=== PATIENT | female | born 1950 | race Caucasian/White ===

== ENCOUNTER 2021-02-01 18:15 | Inpatient (IN) | payer OTHER ==
--- OUTSIDE RECORDS SUMMARY | 2021-02-01 18:24 | XMS REPORT | Continuity of Care Document ---
:1950 Author Organization [facility] t Address [address] [place] [address] Dr. [place] [place] [address] Care Team Providers Name Role Phone Asked, Pcp Primary Care Physician Unavailable Jelani Malik DO Attending Clinician Rupert CORTEZ, Scott Attending Clinician Lab, Fam Pob I Attending Clinician Unavailable Problems This patient has no known problems. Allergies, Adverse Reactions, Alerts Allergy Allergy Status Severity Reaction(s) Onset Inactive Treating Comm ents Source Name Type Date Date Clinician Meperidi Propensi Active Rash 2016-0 [place] to 1-16 Methodi adverse 00:00: st reaction 00 s to drug Nsaids Propensi Active Nausea And 2017-0 [place] (Non-[place]ant[place] ty to Vomiting -16 Method i roidal adverse 00:00: st Anti-Inf reaction 00 lammator s to y Drug) drug Family History Family Member Diagnosis Comments Start Date Stop Date Source Natural father Heart disease [place] [facility] Natural mother Cancer [facility] thodi Social History Social Habit Start Date Stop Date Quantity Comments Source History of tobacco Cigarette Smoker [place] use [facility] Alcohol intake 2019-08-21 2019-08-21 Current drinker [place] on 00:00:00 00:00:00 of alcohol [facility] (finding) Cigarettes smoked 2019-08-21 2019-08-21 [place] current (pack per 00:00:00 00:00:[address] day) - Reported Cigarette 2019-08-21 2019-08-21 [place] pack-years 00:00:00 00:00:00 [facility] Sex [birth year] [place] 00:00:00 00:00:00 [facility] Smoking Status Start Date Stop Date Source Current every day smoker 2019-08-21 00:00:00 Norma Kinsey Medications Ordered Filled Start Stop Current Ordering Indication Dosage Frequency Signature Comments Components Source Medication Medication Date Date Medication? Clinician (SIG) Name Name albuterol 2020-0 Yes 2{puff} Q6H Inhale 2 [place] (PROAIR 1-23 puffs Methodi HFA) 90 14:05: every 6 st mcg/actuati 07 (six) on inhaler hours as needed for wheezing. hydroxychlo 2020-0 Yes Q.5D Take by Norma braun roquine 1-23 mouth 2 Methodi (PLAQUENIL) 14:05: (two) st 200 mg 07 times a tablet day. sulfaSALAzi 2020-0 Yes 3 pills Norma braun ne 1-21 bid [facility]i (AZULFIDINE 00:00: st ) 500 mg 00 tablet Procedures This patient has no known procedures. Plan of Care Planned Activity Planned Date Details Comments Source Future Scheduled 2021-02-27 INFLUENZA VACCINE [place] [facility] Test 00:00:00 [code = INFLUENZA VACCINE] Future Scheduled 2001 BREAST CANCER [facility] thodist Test 00:00:00 SCREENING [code = BREAST CANCER SCREENING] Future Scheduled 2001 COLONOSCOPY SCREENING Ho jelena [facility] Test 00:00:00 [code = COLONOSCOPY SCREENING] Future Scheduled 2001 SHINGLES VACCINES [place] [facility] Test 00:00:00 (#1) [code = SHINGLES VACCINES (#1)] Future Scheduled 1969 Hepatitis C screening Ho jelena [facility] Test 00:00:00 (procedure) [code = 299271456] Future Scheduled 1963 COVID-19 VACCINE (1) Norma braun [facility] Test 00:00:00 [code = COVID-19 VACCINE (1)] Encounters Start End Encounter Admission Attending Care Care Encounter Source Date/Time Date/Time Type Type Clinicians Facility Department ID 2020-10-04 2020-10-04 Patient ANTOINE Malik [id number] 00:00:00 00:00:00 Outreach [facility] [id number] [facility] [id number] PAVILLION [id number] 2020-09-01 2020-09-[address] [facility] [id number] 00:00:00 00:00:00 [facility] [id number] [place] [id number] Professio [phone] [place] [address] [address] 2020-06-09 2020-06-09 [facility] [id number] 00:00:00 00:00:00 Steve Mosquera [id number] Edward [place] [id number] Professio [phone] [place] [address] [address] 2020-04-09 2020-04-09 Kaitlyn Emery [facility] [id number] 00:00:00 00:00:00 Steve Mosquera [id number] Edward [place] [id number] Professio [phone] nal [facility] Office [address] One 2019-03-28 2019-03-28 Machinery [facility], [facility] [id number] 08:01:29 08:12:59 Visit Idris [facility] [id number] [place] [id number] Professio [phone] nal [facility] Office [address] [facility] 2019-03-27 2019-03-27 [facility] [id number] 10:16:16 11:02:33 Visit [facility] [id number] Edward [place] [id number] Professio [phone] [place] [address] [address] Results This patient has no known results.
[2021-02-01] MEDS ORDERED: IPRATROPIUM BROM 0.5MG/2.5ML ONE ×2 (20:31→23:26)
[2021-02-01] MEDS ORDERED: METHYLPREDNISOLONE 125 MG INJ ONE (20:31)
[2021-02-01 20:34] LABS: Absolute Lymphocytes (CBC) 0.6 K/uL (0.7-4.9); Basophils % 0.3 % (0-1.3); Hematocrit 44.7 % (36.0-45.0); Lymphocytes % 13.4 % (15.3-44.8); MPV 9.1 fL (7.6-11.3); RBC Red Blood Cell Count 4.86 M/uL (3.86-4.86)
[2021-02-01 20:53] LABS: ALT/SGPT 26 U/L (12-78); Albumin 3.7 g/dL (3.4-5.0); Alkaline Phosphatase 60 U/L (45-117); BUN Blood Urea Nitrogen 12 mg/dL (7-18); Bicarbonate 25 mmol/L (21-32); Bilirubin Direct 0.2 mg/dL (0-0.2); Glucose Level 110 mg/dL (74-106); NT PRO-BNP 151 pg/mL (<125); Protein, Total 7.1 g/dL (6.4-8.2); Sodium Level 136 mmol/L (136-145); Troponin (Emerg Dept Use Only) < 0.02 ng/mL (0.0-0.045)
[2021-02-01 21:14] LABS: AST/SGOT 23 U/L (15-37); Magnesium 2.1 mg/dL (1.8-2.4)
[2021-02-01 21:15] LABS: Protime INR 0.92
--- NOTE | 2021-02-01 23:10 | ER ---
Nurse's Notes [facility] Name: Baylee Ohara Age: 71 yrs Sex: Female : 1950 Arrival Date: 02/01/2021 Time: 18:17 Bed 7 Private MD: Steve Emery Diagnosis: COPD/ Chronic obstructive pulmonary disease with (acute) exacerbation Presentation: 02/01 18:20 Initial Sepsis Screen: Does the patient meet any 2 criteria? RR > 20 per min. No. sv Patient's initial sepsis screen is negative. Does the patient have a suspected source of infection? No. Patient's initial sepsis screen is negative. 18:21 Chief complaint: Patient states: SOB x 2 days ago after trying a vape at a vape store, sv her PCP told her to start vaping to wean off of her cigarette's. Report cough and congestion as well. Coronavirus screen: Client denies travel out of the [place] in the last 14 days. At this time, the client does not indicate any symptoms associated with coronavirus-19. Ebola Screen: No symptoms or risks identified at this time. Risk Assessment: Do you want to hurt yourself or someone else? Patient reports no desire to harm self or others. Onset of symptoms was January 30, 2021. 18:21 Method Of Arrival: Wheelchair sv 18:21 Acuity: DUSTIN 3 sv Triage Assessment: 18:20 General: Appears in no apparent distress. uncomfortable, Behavior is calm, cooperative, sv appropriate for age. Pain: Denies pain. Neuro: Level of Consciousness is awake, alert, obeys commands, Oriented to person, place, time, situation. Respiratory: Reports shortness of breath Respiratory effort is even, unlabored, Respiratory pattern is tachypnea. Historical: - Allergies: 18:22 NSAIDS; sv 18:22 Demerol; sv - PMHx: 18:22 Chronic obstructive lung disease; RA; sv - Immunization history:: Client reports receiving the 2nd dose of the Covid vaccine, Client reports receiving the 1st dose of the Covid vaccine. - Social history:: Smoking status: Patient reports the use of cigarette tobacco products, smokes one pack cigarettes per day. Screenin:30 Abuse screen: Denies threats or abuse. Nutritional screening: No deficits noted. ea Tuberculosis screening: No symptoms or risk factors identified. Fall Risk None identified. Assessment: 18:28 Reassessment: Received VO from Dr Conklin for CXR. sv 20:20 General: Appears appears SOB at rest. Behavior is calm, cooperative, appropriate for ad5 age. Neuro: No deficits noted. Level of Consciousness is awake, alert, obeys commands, Oriented to person, place, time, situation, Appropriate for age. Cardiovascular: Reports fatigue, shortness of breath, Heart tones present Capillary refill < 3 seconds Patient's skin is warm and dry. Pulses are all present. Rhythm is regular. Respiratory: Reports shortness of breath cough that is congestion Airway is patent Respiratory effort is even, labored, Respiratory pattern is regular, symmetrical, audible wheezes noted. GI: No deficits noted. No signs and/or symptoms were reported involving the gastrointestinal system. : No deficits noted. No signs and/or symptoms were reported regarding the genitourinary system. Derm: Skin is pink, warm \T\ dry. Musculoskeletal: Reports pt reports generalized weakness. 21:32 Reassessment: Patient appears in no apparent distress at this time. Patient and/or ad5 family updated on plan of care and expected duration. Pain level reassessed. Patient is alert, oriented x 3, equal unlabored respirations, skin warm/dry/pink. Patient states symptoms have improved. 22:51 Reassessment: Patient appears in no apparent distress at this time. No changes from ad5 previously documented assessment. Patient and/or family updated on plan of care and expected duration. Pain level reassessed. 23:50 Reassessment: No changes from previously documented assessment. Patient and/or family ad5 updated on plan of care and expected duration. Pain level reassessed. 02/02 01:30 Reassessment: Patient appears in no apparent distress at this time. Patient and/or ad5 family updated on plan of care and expected duration. Pain level reassessed. Patient is alert, oriented x 3, equal unlabored respirations, skin warm/dry/pink. 02:29 Reassessment: Patient and/or family updated on plan of care and expected duration. Pain ad5 level reassessed. Patient is alert, oriented x 3, equal unlabored respirations, skin warm/dry/pink. Vital Signs: 02/01 18:20 BP 145 / 66; Pulse 85; Resp 24; Temp 98; Pulse Ox 92% on R/A; Weight 101.6 kg; Height 5 sv ft. 2 in. (157.48 cm); 20:06 BP 124 / 62; Pulse 77; Resp 24 S; Pulse Ox 99% on NC; ad5 21:32 BP 143 / 66; Pulse 77; Resp 22 S; Pulse Ox 100% on Nebulizer Mask; ad5 22:51 BP 105 / 77; Pulse 82; Resp 20 S; Pulse Ox 100% ; ad5 23:49 BP 121 / 61; Pulse 71; Resp 23 S; Pulse Ox 98% on Nebulizer Mask; ad5 18:20 Body Mass Index 40.97 (101.60 kg, 157.48 cm) sv 18:20 Pt placed on O2 \T\ 2L per NC. sv ED Course: 18:17 Patient arrived in ED. ds1 18:17 Steve Emery MD is Private Physician. ds1 18:22 Triage completed. sv 18:22 Arm band placed on. sv 19:38 Jordan English MD is Attending Physician. 7 19:42 Brendon Hilliard is Primary Nurse. ad5 20:00 Patient has correct armband on for positive identification. Bed in low position. Call ea light in reach. Side rails up X2. 23:09 Mitch Castro MD is Hospitalizing Provider. [facility] 23:48 Arterial Blood Gas Sent. ad5 23:53 Inserted saline lock: 22 gauge in right hand, using aseptic technique. ea 02/02 02:32 No provider procedures requiring assistance completed. Patient admitted, IV remains in ad5 place. Administered Medications: 02/01 20:18 Drug: Albuterol - atroVENT (ipratropium) (3:1) (2.5 mg - 0.5 mg) 3 ml Route: Nebulizer; ad5 21:22 Follow up: Response: No adverse reaction ad5 20:18 Drug: SOLU-Medrol (methylPrednisoLONE) 125 mg {Note: order changed to IM administration ad5 per , pt hard stick.} Route: IVP; Site: Other; 21:22 Follow up: Response: No adverse reaction ad5 23:30 Drug: Albuterol 2.5 mg Route: Inhalation; ad5 02/02 00:50 Follow up: Response: No adverse reaction ad5 02/01 23:35 Drug: Magnesium Sulfate 1 grams Route: IVPB; Infused Over: 1 hrs; Site: right hand; ea 02/02 00:50 Follow up: IV Status: Completed infusion ad5 02/01 23:49 Drug: AtroVENT (ipratropium) Aerosol 0.5 mg Route: Inhalation; ea 02/02 02:29 Follow up: Response: No adverse reaction ad5 Outcome: 02/01 23:09 Decision to Hospitalize by Provider. 7 02/02 02:32 Admitted to Med/surg accompanied by nurse, via stretcher, with oxygen, Report called to maria guadalupe Curtis RN Condition: stable Instructed on the need for admit, Demonstrated understanding of instructions. 02:44 Patient left the ED. ea Signatures: Heather Kelly RN RN Juana Roberto ds1 Antonia Gould RN RN ea Holmes, Maurice, MD MD [facility] Brendon Hilliard [facility] Corrections: (The following items were deleted from the chart) 02/01 18:23 18:20 Pulse 85bpm; Resp 24bpm; Pulse Ox 92% RA; sv sv 18:28 18:20 BP 145 / 66; Pulse 85bpm; Resp 24bpm; Pulse Ox 92% RA; Temp 98F; 101.6 kg; Height sv 5 ft. 2 in.; BMI: 40.9; sv 20:59 20:05 To radiology for Chest Single View+RAD.RAD.BRZ. ad5 EDMS 21:06 20:20 Respiratory: Reports shortness of breath cough that is congestion Airway is ad5 patent Respiratory effort is even, labored, Respiratory pattern is regular, symmetrical, ad5 23:42 23:42 Magnesium Sulfate 1 grams IVPB in right forearm over 1 hrs ea ea
--- NOTE | 2021-02-01 23:11 | EDPHYS ---
Physician Documentation [facility] Name: Baylee Ohara Age: 71 yrs Sex: Female : 1950 Arrival Date: 02/01/2021 Time: 18:17 Bed 7 Private MD: Steve Emery ED Physician Jordan English HPI: 02/01 20:29 This 71 yrs old Female presents to ER via Wheelchair with complaints of mh7 Shortness Of Breath. 20:29 The patient has shortness of breath at rest, with light activity. Onset: The mh7 symptoms/episode began/occurred 3 day(s) ago. Duration: The symptoms are continuous, and are steadily getting worse. The patient's shortness of breath is aggravated by coughing, exertion, light activity, is alleviated by nothing. Associated signs and symptoms: Pertinent positives: productive cough, Pertinent negatives: chest pain, non-productive cough, diaphoresis, dizziness, fever, hemoptysis, loss of consciousness, nausea, numbness in extremities, visual changes, vomiting. Severity of symptoms: At their worst the symptoms were moderate last night, in the emergency department the symptoms are unchanged. Historical: - Allergies: 18:22 NSAIDS; sv 18:22 Demerol; sv - PMHx: 18:22 Chronic obstructive lung disease; RA; sv - Immunization history:: Client reports receiving the 2nd dose of the Covid vaccine, Client reports receiving the 1st dose of the Covid vaccine. - Social history:: Smoking status: Patient reports the use of cigarette tobacco products, smokes one pack cigarettes per day. ROS: 20:29 Constitutional: Negative for fever, chills, and weight loss, Eyes: Negative for injury, mh7 pain, redness, and discharge, ENT: Negative for injury, pain, and discharge, Neck: Negative for injury, pain, and swelling, Cardiovascular: Negative for chest pain, palpitations, and edema, Abdomen/GI: Negative for abdominal pain, nausea, vomiting, diarrhea, and constipation, Back: Negative for injury and pain, : Negative for injury, bleeding, discharge, and swelling, MS/Extremity: Negative for injury and deformity, Skin: Negative for injury, rash, and discoloration, Neuro: Negative for headache, weakness, numbness, tingling, and seizure, Psych: Negative for depression, anxiety, suicide ideation, homicidal ideation, and hallucinations, Allergy/Immunology: Negative for hives, rash, and allergies, Endocrine: Negative for neck swelling, polydipsia, polyuria, polyphagia, and marked weight changes, Hematologic/Lymphatic: Negative for swollen nodes, abnormal bleeding, and unusual bruising. Exam: 20:29 Constitutional: This is a well developed, well nourished patient who is awake, alert, mh7 and in no acute distress. Head/Face: Normocephalic, atraumatic. Eyes: Pupils equal round and reactive to light, extra-ocular motions intact. Lids and lashes normal. Conjunctiva and sclera are non-icteric and not injected. Cornea within normal limits. Periorbital areas with no swelling, redness, or edema. Neck: Trachea midline, no thyromegaly or masses palpated, and no cervical lymphadenopathy. Supple, full range of motion without nuchal rigidity, or vertebral point tenderness. No Meningismus. Chest/axilla: Normal chest wall appearance and motion. Nontender with no deformity. No lesions are appreciated. Cardiovascular: Regular rate and rhythm with a normal S1 and S2. No gallops, murmurs, or rubs. Normal PMI, no JVD. No pulse deficits. 20:29 Abdomen/GI: Soft, non-tender, with normal bowel sounds. No distension or tympany. No guarding or rebound. No evidence of tenderness throughout. Back: No spinal tenderness. No costovertebral tenderness. Full range of motion. Skin: Warm, dry with normal turgor. Normal color with no rashes, no lesions, and no evidence of cellulitis. MS/ Extremity: Pulses equal, no cyanosis. Neurovascular intact. Full, normal range of motion. Neuro: Awake and alert, GCS 15, oriented to person, place, time, and situation. Cranial nerves II-XII grossly intact. Motor strength 5/5 in all extremities. Sensory grossly intact. Cerebellar exam normal. Normal gait. Psych: Awake, alert, with orientation to person, place and time. Behavior, mood, and affect are within normal limits. 20:29 Respiratory: mild respiratory distress is noted, Respirations: prolonged exhalation, that is moderate, tachypnea, that is mild, Breath sounds: rhonchi, that are mild, are scattered, wheezing: expiratory that is moderate, is heard diffusely, Respiratory rate: 24 Vital Signs: 18:20 BP 145 / 66; Pulse 85; Resp 24; Temp 98; Pulse Ox 92% on R/A; Weight 101.6 kg; Height 5 sv ft. 2 in. (157.48 cm); 20:06 BP 124 / 62; Pulse 77; Resp 24 S; Pulse Ox 99% on NC; ad5 21:32 BP 143 / 66; Pulse 77; Resp 22 S; Pulse Ox 100% on Nebulizer Mask; ad5 22:51 BP 105 / 77; Pulse 82; Resp 20 S; Pulse Ox 100% ; ad5 23:49 BP 121 / 61; Pulse 71; Resp 23 S; Pulse Ox 98% on Nebulizer Mask; ad5 18:20 Body Mass Index 40.97 (101.60 kg, 157.48 cm) sv 18:20 Pt placed on O2 \T\ 2L per NC. sv MDM: 23:07 Differential diagnosis: Anemia Anxiety Reaction asthma, Bronchitis CHF exacerbation, 7 Chronic Obstructive Pulmonary Disease Myocardial Infarction pneumonia, Pneumothorax Psychogenic pulmonary edema, reactive airway disease. Data reviewed: vital signs, nurses notes, lab test result(s), cardiac enzymes, CBC, electrolytes, EKG, radiologic studies, CT scan, plain films, Done earlier today as an outpatient. Data interpreted: Pulse oximetry: on 3L(s) per nasal canula, is 100 %. Interpretation: acceptable. Counseling: I had a detailed discussion with the patient and/or guardian regarding: the historical points, exam findings, and any diagnostic results supporting the discharge/admit diagnosis, lab results, radiology results, the need for further work-up and treatment in the hospital. Response to treatment: the patient's symptoms have mildly improved after treatment. 23:09 Patient medically screened. [facility] 02/01 19:47 Order name: Basic Metabolic Panel; Complete Time: 21:40 [facility] 02/01 19:47 Order name: CBC with Diff; Complete Time: 21:40 [facility] 02/01 19:47 Order name: LFT's; Complete Time: 21:40 [facility] 02/01 19:47 Order name: Magnesium; Complete Time: 21:40 [facility] 02/01 19:47 Order name: NT PRO-BNP; Complete Time: 21:40 [facility] 02/01 19:47 Order name: PT-INR; Complete Time: 21:40 [facility] 02/01 19:47 Order name: Troponin (emerg Dept Use Only); Complete Time: 21:40 [facility] 02/01 22:57 Order name: Blood Culture Adult (2) la1 02/01 22:57 Order name: Procalcitonin la1 02/01 22:58 Order name: Arterial Blood Gas [facility] 02/01 22:59 Order name: ABG Arterial Blood Gas [facility] 02/02 01:48 Order name: SARS-COV-2 RT PCR [facility] 02/01 19:47 Order name: EKG; Complete Time: 19:49 [facility] 02/01 19:47 Order name: Cardiac monitoring; Complete Time: 20:05 [facility] 02/01 19:47 Order name: EKG - Nurse/Tech; Complete Time: 20:05 [facility] 02/01 19:47 Order name: Labs collected and sent; Complete Time: 20:06 [facility] 02/01 19:47 Order name: O2 Per Protocol; Complete Time: 21:22 [facility] 02/01 19:47 Order name: O2 Sat Monitoring; Complete Time: 21:22 [facility] 02/01 20:36 Order name: Labs - recollect needed: blue and green top; Complete Time: 21:34 mw2 Administered Medications: 20:18 Drug: Albuterol - atroVENT (ipratropium) (3:1) (2.5 mg - 0.5 mg) 3 ml Route: Nebulizer; ad5 21:22 Follow up: Response: No adverse reaction ad5 20:18 Drug: SOLU-Medrol (methylPrednisoLONE) 125 mg {Note: order changed to IM administration ad5 per MD, pt hard stick.} Route: IVP; Site: Other; 21:22 Follow up: Response: No adverse reaction ad5 23:30 Drug: Albuterol 2.5 mg Route: Inhalation; ad5 02/02 00:50 Follow up: Response: No adverse reaction ad5 02/01 23:35 Drug: Magnesium Sulfate 1 grams Route: IVPB; Infused Over: 1 hrs; Site: right hand; ea 02/02 00:50 Follow up: IV Status: Completed infusion ad5 02/01 23:49 Drug: AtroVENT (ipratropium) Aerosol 0.5 mg Route: Inhalation; ea 02/02 02:29 Follow up: Response: No adverse reaction ad5 Disposition Summary: 02/01/21 23:09 Hospitalization Ordered Hospitalization Status: Inpatient Admission [facility] Provider: Mitch Castro [facility] Location: Telemetry/MedSurg (Inpatient) [facility] Condition: Stable [facility] Problem: an acute exacerbation [facility] Symptoms: have improved [facility] Bed/Room Type: Standard [facility] Room Assignment: 403(02/02/21 02:26) bb Diagnosis - COPD/ Chronic obstructive pulmonary disease with (acute) exacerbation [facility] Forms: - Medication Reconciliation Form [facility] - SBAR form [facility] Signatures: Dispatcher [employer] EDMS Heather Kelly, RN RN Jyothi Antony RN RN bb Raman Huizar, TRAVEL COUNSELOR-C TRAVEL COUNSELOR-Cla1 Antonia Gould RN RN Tomasa Hernandez [facility] Jordan English MD MD [facility] Brendon Hilliard Corrections: (The following items were deleted from the chart) 02/01 19:39 18:29 Chest Pa And Lat (2 Views)+RAD.RAD.BRZ ordered. [facility] EDOR 20:59 19:49 Chest Single View+RAD.RAD.BRZ ordered. EDOR EDMS 20:59 20:06 Chest Single View+RAD.RAD.BRZ reviewed. [address] 02/02 02:26 02/01 23:09 [facility] bb
[2021-02-01] MEDS ORDERED: ALBUTEROL 2.5 MG/3 ML NEB SOL ONE (23:26)
--- NOTE | 2021-02-01 23:31 | P.HP ---
Certification for Inpatient Patient admitted to: Observation With expected LOS: <2 Midnights Patient will require the following post-hospital care: None Practitioner: I am a practitioner with admitting privileges, knowledge of patient current condition, hospital course, and medical plan of care. Services: Services provided to patient in accordance with Admission requirements found in Title 42 Section 412.3 of the Code of Federal Regulations Patient History Date of Service: 02/01/21 Primary Care Provider: Dr. Goldsmith Reason for admission: COPD exacerbation History of Present Illness: 71-year-old female with history of COPD, rheumatoid arthritis presents emergency department for shortness of breath. Patient reports increasing shortness of breath, chills, increased sputum production over the course of the last 3 days. Labs in the emergency department unremarkable, patient had outpatient chest x-ray today which was negative for any acute findings, CT chest demonstrates small 5 mm noncalcified nodule in the right upper lobe with recommendation for continue with annual low-dose CT imaging recommended. Patie nt still with significant expiratory wheezing on exam after breathing treatments, steroids, ED provider wishes to admit under observation for further evaluation and management - Past Medical/Surgical History -: COPD -: Rheumatoid arthritis -: Back fusion -: Left ankle surgery -: Hysterectomy -: Cholecystectomy Psychosocial/ Personal History: Retired, lives with - Family History Mother -: Cancer Father -: Heart disease - Social History Smoking Status: Current every day smoker Counseled patient to stop smoking for: less than 10 minutes Smoking therapy provided: Yes Alcohol use: No CD- Drugs: No Caffeine use: Yes Place of Residence: Home Review of Systems General: Chills Respiratory: Cough, Shortness of Breath, Sputum, Wheezing, As per HPI Physical Examination - Physical Exam General: Alert, In no apparent distress, Oriented x3 HEENT: Atraumatic, PERRLA, Mucous membr. moist/pink Neck: Supple, 2+ carotid pulse no bruit, No LAD Respiratory: Normal air movement, Expiratory wheezes Cardiovascular: Regular rate/rhythm, Normal S1 S2 Gastrointestinal: Normal bowel sounds, No tenderness Musculoskeletal: No tenderness Integumentary: No rashes Neurological: Normal speech, Normal strength at 5/5 x4 extr, Normal tone, Normal affect - Studies Laboratory Data (last 24 hrs) 02/01/21 20:52: PT 10.6, INR 0.92 02/01/21 20:52: Sodium 136, Potassium 4.0, BUN 12, Creatinine 0.71, Glucose 110 H, Magnesium 2.1, Total Bilirubin 1.0, AST 23, ALT 26, Alkaline Phosphatase 60 02/01/21 20:05: WBC 4.40, Hgb 15.0, Hct 44.7, Plt Count 158 Assessment and Plan - Plan Assessment Dyspnea secondary to COPD with exacerbation Rheumatoid arthritis Incidental 5 mm lung nodule noted on CT Tobacco abuse Plan Dyspnea secondary to COPD with exacerbation: Continue with scheduled nebs, IV steroids, supplemental oxygen as needed. Anticipate clinical improvement next 24-48 hr. Pro calcitonin/blood cultures pending, no signs of infection at this time. DVT prophylaxis Lovenox 40 mg subcutaneous once daily. Rheumatoid arthritis: Continue medications. Incidental 5 mm lung nodule noted on CT: This was discussed with patient, recommendation is for annual low-dose CT. Tobacco abuse: Provide with Nicoderm patch, recommend tobacco cessation. Discharge Plan: Home Plan to discharge in: 24 Hours - Advance Directives Does patient have a Living Will: Yes Does patient have a Durable POA for Healthcare: Yes - Code Status/Comfort Care Code Status Assessed: Yes (Full code) Critical Care: No Time Spent Managing Pts Care (In Minutes): 55
[2021-02-01] MEDS ORDERED: Magnesium Sulfate 2gm IVPB 2 G/50 ML BAG IV ONE (23:35)
[2021-02-01 23:53] LABS: Arterial Blood Carboxyhemoglob 1.5 % (0-1.5); Blood Gas Oxyhemoglobin 87.7 % (94-97); Blood O2 Saturation 89.9 % (92-98.5)
[2021-02-02 02:59] VITALS: BMI 35.5
[2021-02-02] MEDS ORDERED: ACETAMINOPHEN 500 MG TAB PO PRN (03:09)
[2021-02-02] MEDS ORDERED: NICOTINE 14 MG/PAT TD PRN (03:09)
[2021-02-02] MEDS: METHYLPREDNISOLONE 125 MG INJ IV SCH ×3 (03:30→17:26)
[2021-02-02] MEDS: IPRATROPIUM BROM 0.5MG/2.5ML NEB SCH ×4 (03:40→19:25)
[2021-02-02] MEDS: ALBUTEROL 2.5 MG/3 ML NEB SOL NEB SCH ×4 (03:40→19:25)
[2021-02-02] MEDS ORDERED: ALBUTEROL INHALER 60 PUFF/8 GM IH PRN (05:04)
[2021-02-02 05:58] LABS: Absolute Lymphocytes (CBC) 0.2 K/uL (0.7-4.9); Basophils % 0.2 % (0-1.3); Hematocrit 41.5 % (36.0-45.0); Lymphocytes % 8.3 % (15.3-44.8); MPV 9.2 fL (7.6-11.3); RBC Red Blood Cell Count 4.49 M/uL (3.86-4.86)
[2021-02-02 06:04] LABS: ALT/SGPT 25 U/L (12-78); AST/SGOT 19 U/L (15-37); Albumin 3.4 g/dL (3.4-5.0); Alkaline Phosphatase 57 U/L (45-117); BUN Blood Urea Nitrogen 13 mg/dL (7-18); Bicarbonate 26 mmol/L (21-32); Bilirubin Total 0.6 mg/dL (0.2-1.0); Glucose Level 181 mg/dL (74-106); HDL Cholesterol 62 mg/dL (40-60); LDL Cholesterol, Calculated 57 (<130); Magnesium 2.7 mg/dL (1.8-2.4); Protein, Total 6.6 g/dL (6.4-8.2); Sodium Level 136 mmol/L (136-145)
[2021-02-02] MEDS: Leflunomide [Arava] 20 MG Tablet PO SCH (09:00)
[2021-02-02] MEDS ORDERED: AZITHROMYCIN IV 500 MG in NA CHLORIDE 0.9% 250 ML IVPB SCH (09:00)
[2021-02-02 09:05] LABS: Blood Morphology Comment NOT SEEN (NOT SEEN); Platelet Estimate ADEQ; White Blood Cell Scan OK (OK)
[2021-02-02] MEDS: DULERA 200/5 (MOMETASONE/FORMOTEROL) INHALER IH SCH ×2 (09:05→21:48)
[2021-02-02] MEDS: GUAIFENESIN 600 MG SA TAB PO SCH ×2 (09:06→21:48)
[2021-02-02] MEDS: ENOXAPARIN 40 MG/0.4 ML SQ SCH (09:06)
[2021-02-02] MEDS: HYDROXYCHLOROQUINE 200MG TAB PO SCH (09:07)
[2021-02-02] MEDS: AZITHROMYCIN 250 MG TAB PO SCH (09:11)
--- NOTE | 2021-02-02 11:19 | RAD REPORT ---
EXAM DESCRIPTION: RAD - Chest Single View - 02/02/2021 9:45 am COMPARISON: None. TECHNIQUE: AP portable chest image was obtained . FINDINGS: Lungs are clear. Heart and vasculature are normal. No measurable pleural effusion and no p neumothorax. No gross bony abnormality seen. IMPRESSION: No acute cardiopulmonary disease. No change from yesterday
--- NOTE | 2021-02-02 12:08 | P.CNS ---
Date of Consult: 02/02/21 Primary Care Provider: Dr. Goldsmith Chief Complaint: COPD exacerbation History of Present Illness: Patient is 71 years of age admitted with worsening cough shortness of breath apparently she tried of a pink prior I have made her worse she is still coughing short of breath he is to smoke Allergies meperidine [From Demerol] Allergy (Verified 02/02/21 03:18) Itching/Hives/Rash NSAIDS (Non-Steroidal Anti-Inflamma Allergy (Verified 02/02/21 03:18) Itching/Hives/Rash Home Medications: Albuterol Inhaler [Ventolin Inhaler] 2 puff IH Q6H PRN 02/02/21 Hydroxychloroquine [Plaquenil] 200 mg PO DAILY 02/02/21 Leflunomide [Arava] 20 mg PO DAILY 02/02/21 - Past Medical/Surgical History Diabetic: No -: COPD -: Rheumatoid arthritis -: Back fusion -: Left ankle surgery -: Hysterectomy -: Cholecystectomy Psychosocial/ Personal History: Retired, lives with - Family History Mother Medical History: Cancer Father Medical History: Heart disease - Social History Smoking Status: Current every day smoker Alcohol use: Yes CD- Drugs: No Caffeine use: Yes Place of Residence: Home Review of Systems General: Weakness Respiratory: Cough, Shortness of Breath Physical Examination Temp Pulse Resp BP Pulse Ox 97.9 F 68 30 H 135/60 94 02/02/21 08:00 02/02/21 08:00 02/02/21 08:00 02/02/21 08:00 02/02/21 08:00 General: Alert, Moderate distress Respiratory: Clear to auscultation bilaterally, Diminished Cardiovascular: No edema, Regular rate/rhythm Gastrointestinal: Normal bowel sounds, Soft and benign Laboratory Data (last 24 hrs) 02/01/21 20:52: PT 10.6, INR 0.92 02/01/21 20:52: Sodium 136, Potassium 4.0, BUN 12, Creatinine 0.71, Glucose 110 H, Magnesium 2.1, Total Bilirubin 1.0, AST 23, ALT 26, Alkaline Phosphatase 60 02/01/21 20:05: WBC 4.40, Hgb 15.0, Hct 44.7, Plt Count 158 - Problems (1) COPD exacerbation Current Visit: Yes Status: Acute Plan: Patient is 71 years of age history of COPD admitted with an exacerbation I just recently saw her in my office patient was scheduled to have CT scan and PFTs CT scan shows a very small noncalcified nodule in the right upper lobe is not very well-defined nodule is right in the periphery change to p.o. Zithromax p.o. prednisone evaluate for discharge tomorrow annual continue with bronchodilators prescribed by me in the office vital signs stable she may be little hypoxic requiring 4 L of nasal cannula oxygen
--- NOTE | 2021-02-02 13:00 | EKG ---
Test Date: 2021-02-01 Test Time: 19:52:54 Magazine Supervisor: STEFANO MEASUREMENT RESULTS: Intervals: Rate: 76 WA: 134 QRSD: 84 QT: 376 QTc: 423 Geddes: P: 76 WA: 134 QRS: 76 T: 58 INTERPRETIVE STATEMENTS: Normal sinus rhythm Normal ECG No previous ECG available for comparison Electronically Signed On 02-02-21 12:59:06 CDT by Hiram Dutta
--- NOTE | 2021-02-02 15:43 | P.PN ---
Subjective Date of Service: 02/02/21 Primary Care Provider: Dr. Goldsmith Chief Complaint: COPD exacerbation Subjective: Improving (minimal improvement overnight, still very short of breath, labored respirations, wheezing) Review of Systems 10-point ROS is otherwise unremarkable Physical Examination - Vital Signs Temperature: 98.2 F Blood Pressure: 142/57 Pulse: 82 Respirations: 30 Pulse Ox (%): 93 - Studies Laboratory Data (last 24 hrs) 02/01/21 20:52: PT 10.6, INR 0.92 02/01/21 20:52: Sodium 136, Potassium 4.0, BUN 12, Creatinine 0.71, Glucose 110 H, Magnesium 2.1, Total Bilirubin 1.0, AST 23, ALT 26, Alkaline Phosphatase 60 02/01/21 20:05: WBC 4.40, Hgb 15.0, Hct 44.7, Plt Count 158 Microbiology Data (last 24 hrs): 02/01/21 23:36 Blood - Blood Anaerobic Blood Culture - Final Assessment & Plan Physician Review Additional Text: Physical Exam General: Alert, NAD HEENT: normal conjunctiva, sclera anicteric Respiratory: b/l expiratory wheeze diffusely, labored respirations on 4L NC Cardiovascular: Regular rate/rhythm, Normal S1 S2 Gastrointestinal: soft, nontender, nondistended Musculoskeletal: No tenderness/swelling of joints Integumentary: No rashes Problem List acute on chronic respiratory failure with hypoxia and hypercapnia secondary to acute on chronic COPD exacerbation Rheumatoid arthritis Incidental 5 mm lung nodule noted on CT Tobacco dependence -continue steroids, nebs, O2 as needed; does not use home O2 -do not suspect infection at this time -will add azithromycin for anti-inflammatory effect; on plaquenil, EKG without QT prolongation, will monitor -pulm consulted -anticipate improvement over next 24-48hrs Code: full Dispo: anticipate dc home in 24-48hrs Time Spent Managing Pts Care (In Minutes): 40
[2021-02-03] MEDS: METHYLPREDNISOLONE 125 MG INJ IV SCH ×3 (01:15→16:33)
[2021-02-03] MEDS: ALBUTEROL 2.5 MG/3 ML NEB SOL NEB SCH ×5 (02:33→20:00)
[2021-02-03] MEDS: IPRATROPIUM BROM 0.5MG/2.5ML NEB SCH ×5 (02:33→20:00)
[2021-02-03 04:34] LABS: Absolute Lymphocytes (CBC) 0.4 K/uL (0.7-4.9); Basophils % 0.1 % (0-1.3); Hematocrit 40.1 % (36.0-45.0); Lymphocytes % 9.8 % (15.3-44.8); MPV 9.3 fL (7.6-11.3); RBC Red Blood Cell Count 4.36 M/uL (3.86-4.86)
[2021-02-03 04:37] LABS: Albumin 3.5 g/dL (3.4-5.0); Bilirubin Total 0.5 mg/dL (0.2-1.0); Magnesium 2.8 mg/dL (1.8-2.4); Potassium 4.1 mmol/L (3.5-5.1); Protein, Total 6.7 g/dL (6.4-8.2)
[2021-02-03] MEDS: ENOXAPARIN 40 MG/0.4 ML SQ SCH (07:58)
[2021-02-03] MEDS: HYDROXYCHLOROQUINE 200MG TAB PO SCH (07:58)
[2021-02-03] MEDS: GUAIFENESIN 600 MG SA TAB PO SCH ×2 (07:59→20:57)
[2021-02-03] MEDS: DULERA 200/5 (MOMETASONE/FORMOTEROL) INHALER IH SCH ×2 (08:00→20:58)
[2021-02-03] MEDS: AZITHROMYCIN 250 MG TAB PO SCH (08:00)
[2021-02-03] MEDS: Leflunomide [Arava] 20 MG Tablet PO SCH (08:01)
[2021-02-03 11:12] LABS: Arterial Blood Carboxyhemoglob 0.6 % (0-1.5); Blood Gas Oxyhemoglobin 93.5 % (94-97); Blood O2 Saturation 95.1 % (92-98.5)
--- NOTE | 2021-02-03 11:53 | RAD REPORT ---
EXAM DESCRIPTION: CT - Chest For Pe Angio - 02/03/2021 11:33 am CLINICAL HISTORY: hypoxia, SOB, r/o PE COMPARISON: Lung Cancer Screening CT W/O dated 02/01/2021; Chest Single View dated 02/02/2021 TECHNIQUE: Dynamically enhanced 3 mm thick images of the chest were obtained during administration o f approximately 150mL Isovue 370 IV contrast. Coronal and oblique MIP reconstruction images were gene rated and reviewed. Exam utilizes a protocol to evaluate the pulmonary arterial tree. All CT scans are performed using dose optimization technique as appropriate and may include automated exposure control or mA/KV adjustment according to patient size. FINDINGS: No pulmonary emboli are identified. The aorta as imaged shows no acute or suspicious finding. No pericardial thickening or effusion. No focal consolidation or new mass lesion. Minimal lung parenchymal nodularity was detailed on the [facility] lung cancer screening study of February 01. Underlying respiratory motion artifact accentuates the in terstitial pattern potentially masking mild interstitial edema or infiltrate. No ground-glass opacifi cation. Scarring changes are present. No pleural effusion or pleural thickening. No mediastinal or hilar suspicious masses. No chest wall masses or abnormal axillary lymphadenopathy. IMPRESSION: No pulmonary emboli identified. No new mass or consolidation. Respiratory motion degradation accentuates the interstitial pattern pot entially masking mild interstitial edema or infiltrate.
--- NOTE | 2021-02-03 16:55 | P.PN ---
Subjective Date of Service: 02/03/21 Primary Care Provider: Dr. Goldsmith Chief Complaint: COPD exacerbation Subjective: Improving (still feeling tired/fatigued, short of breath, oxygen weaning down, +cough, +wheeze) Review of Systems 10-point ROS is otherwise unremarkable Physical Examination - Vital Signs Temperature: 97.6 F Blood Pressure: 119/61 Pulse: 76 Respirations: 26 Pulse Ox (%): 95 - Studies Laboratory Data (last 24 hrs) 02/03/21 03:29: Sodium 140, Potassium 4.1, BUN 14, Creatinine 0.68, Glucose 158 H, Magnesium 2.8 H, Total Bilirubin 0.5, AST 23, ALT 26, Alkaline Phosphatase 54 02/03/21 03:29: WBC 3.90 L D, Hgb 13.9, Hct 40.1, Plt Count 151 L Microbiology Data (last 24 hrs): 02/02/21 07:00 Sputum Sputum Gram Stain - Final 02/02/21 02:57 Blood - Blood Anaerobic Blood Culture - Final 02/01/21 23:36 Blood - Blood Anaerobic Blood Culture - Final Assessment & Plan Physician Review Additional Text: Physical Exam General: Alert, NAD HEENT: normal conjunctiva, sclera anicteric Respiratory: b/l expiratory wheeze diffusely, labored respirations on 3L NC Cardiovascular: Regular rate/rhythm, Normal S1 S2 Gastrointestinal: soft, nontender, nondistended Musculoskeletal: No tenderness/swelling of joints Integumentary: No rashes Problem List acute on chronic respiratory failure with hypoxia and hypercapnia secondary to acute on chronic COPD exacerbation Rheumatoid arthritis Incidental 5 mm lung nodule noted on CT Tobacco dependence -continue steroids, nebs, O2 as needed; does not use home O2 -do not suspect infection at this time -continue azithromycin for anti-inflammatory effect; on plaquenil, EKG without QT prolongation, will monitor -pulm consulted -anticipate improvement over next 24-48hrs -still very short of breath / dyspneic, will check CT and ABG r/o hypercapnia Code: full Dispo: anticipate dc home in 24-48hrs Time Spent Managing Pts Care (In Minutes): 35
[2021-02-04] MEDS: METHYLPREDNISOLONE 125 MG INJ IV SCH ×3 (00:22→17:06)
[2021-02-04] MEDS: ALBUTEROL 2.5 MG/3 ML NEB SOL NEB SCH ×4 (01:00→20:20)
[2021-02-04] MEDS: IPRATROPIUM BROM 0.5MG/2.5ML NEB SCH ×4 (01:00→20:20)
[2021-02-04 05:36] LABS: Absolute Lymphocytes (CBC) 0.4 K/uL (0.7-4.9); Basophils % 0.2 % (0-1.3); Hematocrit 40.9 % (36.0-45.0); Lymphocytes % 7.2 % (15.3-44.8); MPV 9.2 fL (7.6-11.3); RBC Red Blood Cell Count 4.38 M/uL (3.86-4.86)
[2021-02-04 05:58] LABS: Albumin 3.5 g/dL (3.4-5.0); Bilirubin Total 0.4 mg/dL (0.2-1.0); Magnesium 2.7 mg/dL (1.8-2.4); Protein, Total 6.5 g/dL (6.4-8.2)
[2021-02-04] MEDS: AZITHROMYCIN 250 MG TAB PO SCH (09:00)
[2021-02-04] MEDS: Leflunomide [Arava] 20 MG Tablet PO SCH (09:00)
[2021-02-04] MEDS ORDERED: BENZONATATE 100 MG CAP PO PRN (09:17)
[2021-02-04] MEDS ORDERED: DULERA 100/5 (MOMETASONE/FORMOTEROL) INHALER IH SCH (10:00)
[2021-02-04] MEDS: ENOXAPARIN 40 MG/0.4 ML SQ SCH (10:10)
[2021-02-04] MEDS: GUAIFENESIN 600 MG SA TAB PO SCH (10:11)
[2021-02-04] MEDS: DULERA 200/5 (MOMETASONE/FORMOTEROL) INHALER IH SCH ×2 (10:13→20:27)
[2021-02-04] MEDS: ONDANSETRON 4 MG/2 ML VIAL IV PRN (12:24)
[2021-02-04] MEDS: HYDROXYCHLOROQUINE 200MG TAB PO SCH (12:24)
--- NOTE | 2021-02-04 16:53 | P.PN ---
Subjective Date of Service: 02/04/21 Primary Care Provider: Dr. Goldsmith Chief Complaint: COPD exacerbation Subjective: No new changes (minimal improvement. still on 2-3 L NC. +cough, fatigue.) Review of Systems 10-point ROS is otherwise unremarkable Physical Examination - Vital Signs Temperature: 97 F Blood Pressure: 116/61 Pulse: 77 Respirations: 20 Pulse Ox (%): 98 - Studies Microbiology Data (last 24 hrs): 02/02/21 07:00 Sputum Sputum Gram Stain - Final 02/02/21 07:00 Sputum Culture & Sensitivity - Final NORMAL QUANTITY OF UPPER RESPIRATORY GERA GROWN. Assessment & Plan Physician Review Additional Text: Physical Exam General: Alert, NAD HEENT: normal conjunctiva, sclera anicteric, normal oral mucosa Respiratory: b/l expiratory wheeze, nonlabored respirations on 3L NC Cardiovascular: Regular rate/rhythm, Normal S1 S2 Gastrointestinal: soft, nontender, nondistended Musculoskeletal: No tenderness/swelling of joints Integumentary: No rashes Problem List acute on chronic respiratory failure with hypoxia and hypercapnia secondary to acute on chronic COPD exacerbation Rheumatoid arthritis Incidental 5 mm lung nodule noted on CT Tobacco dependence -continue steroids, nebs, O2 as needed; does not use home O2 -do not suspect infection at this time -CTA 02/03 - negative for PE or infectious process, no pulm edema/fluid -continue azithromycin for anti-inflammatory effect; on plaquenil, EKG without QT prolongation, will monitor -pulm consulted -anticipate improvement over next 24-48hrs, home O2 ordered, may have prolonged course -clinically improving, but rate has slowed down, cough seems to be the worst of it -check flu, manage cough Code: full Dispo: anticipate dc home in 24-48hrs Time Spent Managing Pts Care (In Minutes): 35
[2021-02-04] MEDS: GUAIFENESIN/CODEINE 5ML UCUP PO PRN (20:26)
[2021-02-05] MEDS: METHYLPREDNISOLONE 125 MG INJ IV SCH ×2 (00:40→09:54)
[2021-02-05] MEDS: IPRATROPIUM BROM 0.5MG/2.5ML NEB SCH ×2 (02:30→08:20)
[2021-02-05] MEDS: ALBUTEROL 2.5 MG/3 ML NEB SOL NEB SCH ×2 (02:30→08:20)
[2021-02-05] MEDS: GUAIFENESIN/CODEINE 5ML UCUP PO PRN (05:07)
[2021-02-05 05:23] LABS: Absolute Lymphocytes (CBC) 0.4 K/uL (0.7-4.9); Basophils % 0.2 % (0-1.3); Hematocrit 41.3 % (36.0-45.0); Lymphocytes % 8.5 % (15.3-44.8); MPV 9.1 fL (7.6-11.3); RBC Red Blood Cell Count 4.43 M/uL (3.86-4.86)
[2021-02-05 05:42] LABS: BUN Blood Urea Nitrogen 18 mg/dL (7-18); Bicarbonate 28 mmol/L (21-32); Ferritin 239.2 ng/mL (8-388); Glucose Level 185 mg/dL (74-106); Magnesium 2.7 mg/dL (1.8-2.4); Potassium 4.4 mmol/L (3.5-5.1); Sodium Level 140 mmol/L (136-145)
[2021-02-05 05:59] LABS: C-Reactive Protein < 2.90 mg/L (<3.00)
--- NOTE | 2021-02-05 08:54 | RAD REPORT ---
EXAM DESCRIPTION: RAD - Chest Single View - 02/05/2021 7:54 am CLINICAL HISTORY: hypoxia, cough COMPARISON: February 02February 01 TECHNIQUE: AP portable chest image was obtained 02/05/2021 7:54 am . FINDINGS: Lung volumes are low but remain clear of a peripheral mass or consolidation. No failure or volume overload findings. Diaphragmatic eventration again noted. Heart size is normal range, accentu ated by the shallow inspiration. No measurable pleural effusion and no pneumothorax. No acute bony ab normality seen. No acute aortic findings suspected. IMPRESSION: No acute cardiopulmonary process. No significant change from comparison study.
[2021-02-05] MEDS: Leflunomide [Arava] 20 MG Tablet PO SCH (09:00)
[2021-02-05 09:32] VITALS: BP 113/56; TEMP 96.9
[2021-02-05] MEDS: HYDROXYCHLOROQUINE 200MG TAB PO SCH (09:54)
[2021-02-05] MEDS: ONDANSETRON 4 MG/2 ML VIAL IV PRN (09:54)
[2021-02-05] MEDS: ENOXAPARIN 40 MG/0.4 ML SQ SCH (09:55)
[2021-02-05] MEDS: DULERA 200/5 (MOMETASONE/FORMOTEROL) INHALER IH SCH (09:56)
[2021-02-05 11:51] VITALS: O2SAT 95
--- NOTE | 2021-02-05 15:35 | P.DS ---
Admission Date: 02/03/21 Discharge Date: 02/05/21 Primary Care Provider: Dr. Goldsmith Disposition: ROUTINE DISCHARGE Discharge Condition: GOOD Reason for Admission: COPD exacerbation Consultations: Pulm - Dr. Cruz Procedures: CXR (02/02): FINDINGS: Lungs are clear. Heart and vasculature are normal. No measurable pleural effusion and no pneumothorax. No gross bony abnormality seen. IMPRESSION: No acute cardiopulmonary disease. No change from yesterday CTA Chest (02/03): FINDINGS: No pulmonary emboli are identified. The aorta as imaged shows no acute or suspicious finding. No pericardial thickening or effusion. No focal consolidation or new mass lesion. Minimal lung parenchymal nodularity was detailed on the recent lung cancer screening study of February 01. Underlying respiratory motion artifact accentuates the interstitial pattern potentially masking mild interstitial edema or infiltrate. No ground-glass opacification. Scarring changes are present. No pleural effusion or pleural thickening. No mediastinal or hilar suspicious masses. No chest wall masses or abnormal axillary lymphadenopathy. IMPRESSION: No pulmonary emboli identified. No new mass or consolidation. Respiratory motion degradation accentuates the interstitial pattern potentially masking mild interstitial edema or infiltrate. CXR (02/05): FINDINGS: Lung volumes are low but remain clear of a peripheral mass or consolidation. No failure or volume overload findings. Diaphragmatic eventration again noted. Heart size is normal range, accentuated by the shallow inspiration. No measurable pleural effusion and no pneumothorax. No acute bony abnormality seen. No acute aortic findings suspected. IMPRESSION: No acute cardiopulmonary process. No significant change from comparison study. Problem List acute on chronic respiratory failure with hypoxia and hypercapnia secondary to acute on chronic COPD exacerbation Rheumatoid arthritis Incidental 5 mm lung nodule noted on CT Nicotine dependence Brief History of Present Illness: 71-year-old female with history of COPD, rheumatoid arthritis presents emergency department for shortness of breath. Patient reports increasing shortness of breath, chills, increased sputum production over the course of the last 3 days. Labs in the emergency department unremarkable, patient had outpatient chest x-ray today which was negative for any acute findings, CT chest demonstrates small 5 mm noncalcified nodule in the right upper lobe with recommendation for continue with annual low-dose CT imaging recommended. Patient still with significant expiratory wheezing on exam after breathing treatments, steroids, ED provider wishes to admit under observation for further evaluation and management Hospital Course: Patient was treated for COPD exacerbation and had gradual improvement. She continued to require O2 supplementation and was setup / discharged with home O2. CXR and CTA were performed and negative for infection, PE, effusions. Discharged home to continue Prednisone, cough suppressants, and inhalers. Patient stated just recently started on advair ~2-3 days prior to admission, ok to resume. Pulmonology recommended addition of Daliresp 500 mcg daily. Follow up with PCP in 3-5 days. Follow up with Dr. Cruz in ~1 week. Vital Signs/Physical Exam: Physical Exam General: Alert, NAD HEENT: normal conjunctiva, sclera anicteric, normal oral mucosa Respiratory: mild b/l wheeze with occasional cough, nonlabored respirations on 2L NC Cardiovascular: Regular rate/rhythm, Normal S1 S2 Gastrointestinal: soft, nontender, nondistended Musculoskeletal: No tenderness/swelling of joints Integumentary: No rashes Temp Pulse Resp BP Pulse Ox 96.9 F 61 24 H 113/56 L 95 02/05/21 08:00 02/05/21 08:00 02/05/21 08:00 02/05/21 08:00 02/05/21 08:00 Laboratory Data at Discharge: WBC 4.50 K/uL (4.3-10.9) D 02/05/21 05:01 Hgb 13.7 g/dL (12.0-15.0) 02/05/21 05:01 Hct 41.3 % (36.0-45.0) 02/05/21 05:01 Plt Count 179 K/uL (152-406) 02/05/21 05:01 PT 10.6 SECONDS (9.5-12.5) 02/01/21 20:52 INR 0.92 02/01/21 20:52 Sodium 140 mmol/L (136-145) 02/05/21 05:01 Potassium 4.4 mmol/L (3.5-5.1) 02/05/21 05:01 BUN 18 mg/dL (7-18) 02/05/21 05:01 Creatinine 0.78 mg/dL (0.55-1.3) 02/05/21 05:01 Glucose 185 mg/dL (74-106) H 02/05/21 05:01 Magnesium 2.7 mg/dL (1.8-2.4) H 02/05/21 05:01 Total Bilirubin 0.4 mg/dL (0.2-1.0) 02/04/21 05:05 AST 23 U/L (15-37) 02/04/21 05:05 ALT 32 U/L (12-78) 02/04/21 05:05 Alkaline Phosphatase 48 U/L (45-117) 02/04/21 05:05 Triglycerides 57 mg/dL (<150) 02/02/21 05:29 Cholesterol 130 mg/dL (<200) 02/02/21 05:29 HDL Cholesterol 62 mg/dL (40-60) H 02/02/21 05:29 Cholesterol/HDL Ratio 2.10 02/02/21 05:29 Home Medications: Albuterol Inhaler [Ventolin Inhaler*] 2 puff IH Q6H PRN 02/02/21 Hydroxychloroquine [Plaquenil*] 200 mg PO DAILY 02/02/21 Leflunomide [Arava] 20 mg PO DAILY 02/02/21 Benzonatate [Tessalon Perle*] 100 mg PO TID PRN 7 Days #21 cap 02/05/21 Guaifen W/Codeine Syrup [ROBITUSSIN A-C Syrup*] 5 ml PO Q8HR PRN 3 Days #9 ucup 02/05/21 Mometasone/Formoterol [Dulera 200 Mcg/5 Mcg Inhaler] 2 puff IH BID 30 Days #1 in haler 02/05/21 Ondansetron [Zofran] 4 mg PO Q6H PRN 3 Days #10 tab 02/05/21 Roflumilast [Daliresp] 500 mcg PO DAILY 30 Days #30 tablet 02/05/21 predniSONE [Deltasone] 20 mg PO SEECOM 10 Days #15 tab 02/05/21 New Medications: Guaifen W/Codeine Syrup [ROBITUSSIN A-C Syrup*] 5 ml PO Q8HR PRN 3 Days #9 ucup PRN Reason: Cough Roflumilast [Daliresp] 500 mcg PO DAILY 30 Days #30 tablet Mometasone/Formoterol [Dulera 200 Mcg/5 Mcg Inhaler] 2 puff IH BID 30 Days #1 inhaler predniSONE [Deltasone] 20 mg PO SEECOM 10 Days #15 tab Benzonatate [Tessalon Perle*] 100 mg PO TID PRN 7 Days #21 cap PRN Reason: Cough Ondansetron [Zofran] 4 mg PO Q6H PRN 3 Days #10 tab PRN Reason: Nausea / Vomiting Physician Discharge Instructions: PROBLEM: COPD exacerbation GOAL: Clear understanding of disease process INSTRUCTIONS: Diet: heart healthy Activity: As tolerated If you have any questions regarding your stay call [phone] If your symptoms worsen call 911 or go to the ED. COMMUNITY SERVICES Services Needed: DME Company Name of Company: [facility] Date or Referral: 02/04/21 For any questions regarding any oxygen concerns please call [facility] at [phone] You were found to have acute COPD exacerbation. You had chest x-rays, CT chest, that did not reveal any fluid / infection / other cause of your symptoms. You had improvement with steroids, nebulizers, and cough medication. You are discharged to continue this treatment with prednisone, albuterol inhaler, continue your advair at home, and cough medication. Follow up with Dr. Cruz in ~1 week. Follow up with your PCP in 3-5 days. Recommended to stop smoking. Consider nicotine replacement/ medication assistance if needed. Do not smoke while on oxygen / near oxygen. Diet: AHA Activity: Ad husam Followup: Jace Cruz MD [ACTIVE - CAN ADMIT] - Steve Emery MD [Primary Care Provider] - Time spent managing pt's care (in minutes): 40
== END 2021-02-05 14:09 | disposition home or self-care (01) | DRG 190 ==
LOC: ER 18:15 → ERHOLD 23:46 → 4TH 02-02 02:33 → OBSVTOIN 02-03 07:58 → 2ND 02-03 15:22
PROVIDERS: ADMIT Hospitalist; ATTEND Hospitalist
DX: J44.1 Chronic obstructive pulmonary disease with (acute) exacerbation (principal); J96.22 Acute and chronic respiratory failure with hypercapnia; J96.21 Acute and chronic respiratory failure with hypoxia; M06.9 Rheumatoid arthritis, unspecified; R91.1 Solitary pulmonary nodule; F17.210 Nicotine dependence, cigarettes, uncomplicated; Z20.822 Contact with and (suspected) exposure to COVID-19
CPT/HCPCS: 36415; 71045; 71046; 71275; 80048; 80053; 80061; 80076; 82728; 82805; 83735; 83880; 84145; 84439; 84443; 84484; 85025; 85610; 86140; 87040; 87070; 87205; 93005; 96365; 96375; 97161; 99285; G0297; G0378; J0456; J1650; J2405; J2930; J3475; J7050; J7606; Q9967; U0003

== ENCOUNTER 2021-02-09 11:51 | Inpatient (IN) | payer OTHER ==
--- OUTSIDE RECORDS SUMMARY | 2021-02-09 11:54 | XMS REPORT | Continuity of Care Document ---
:1950 Author Organization [facility] t Address [address] [place] [address] Care Team Providers Name Role Phone Asked, Pcp Primary Care Physician Unavailable Scott Emery MD Attending Clinician Jelani Malik DO Attending Clinician Lab, Fam Pob I Attending Clinician Unavailable Problems This patient has no known problems. Allergies, Adverse Reactions, Alerts Allergy Allergy Status Severity Reaction(s) Onset Inactive Treating Comm ents Source Name Type Date Date Clinician Meperidi Propensi Active Rash 2016-0 [place] ty to 1-16 Methodi adverse 00:00: st reaction 00 s to drug Nsaids Propensi Active Nausea And 2016-0 [place] (Non-[place]ant[place] ty to Vomiting 1-16 Method i roidal adverse 00:00: st Anti-Inf reaction 00 lammator s to y Drug) drug Family History Family Member Diagnosis Comments Start Date Stop Date Source Natural father Heart disease [place] Rastafari Natural mother Cancer [facility] Social History Social Habit Start Date Stop Date Quantity Comments Source History of tobacco Cigarette Smoker [place] use Rastafari Alcohol intake 2019-08-21 2019-08-21 Current drinker [place] on 00:00:00 00:00:00 of alcohol Rastafari (finding) Cigarettes smoked 2019-08-21 2019-08-21 [place] current (pack per 00:00:00 00:00:[address] day) - Reported Cigarette 2019-08-21 2019-08-21 [place] pack-years 00:00:00 00:00:00 Rastafari Sex [birth year] Ramesh 00:00:00 00:00:00 Rastafari Smoking Status Start Date Stop Date Source Current every day smoker 2019-08-21 00:00:00 Norma Kinsey Medications Ordered Filled Start Stop Current Ordering Indication Dosage Frequency Signature Comments Components Source Medication Medication Date Date Medication? Clinician (SIG) Name Name albuterol 2019-0 Yes 2{puff} Q6H Inhale 2 H [place] (PROAIR 1-23 puffs Methodi HFA) 90 14:05: every 6 st mcg/actuati 07 (six) on inhaler hours as needed for wheezing. hydroxychlo 2019-0 Yes Q.5D Take by Norma braun roquine 1-23 mouth 2 Methodi (PLAQUENIL) 14:05: (two) st 200 mg 07 times a tablet day. sulfaSALAzi 2019-0 Yes 3 pills Norma braun ne 1-21 bid Methodi (AZULFIDINE 00:00: st ) 500 mg 00 tablet Procedures This patient has no known procedures. Plan of Care Planned Activity Planned Date Details Comments Source Future Scheduled 2021-02-27 INFLUENZA VACCINE [place] Rastafari Test 00:00:00 [code = INFLUENZA VACCINE] Future Scheduled 2001 BREAST CANCER [facility] Test 00:00:00 SCREENING [code = BREAST CANCER SCREENING] Future Scheduled 2001 COLONOSCOPY SCREENING Randall jelena Rastafari Test 00:00:00 [code = COLONOSCOPY SCREENING] Future Scheduled 2001 SHINGLES VACCINES [place]ast[place] Test 00:00:00 (#1) [code = SHINGLES VACCINES (#1)] Future Scheduled 1969 Hepatitis C screening Randall jelena Rastafari Test 00:00:00 (procedure) [code = 207828281] Future Scheduled 1963 COVID-19 VACCINE (1) Norma braun Rastafari Test 00:00:00 [code = COVID-19 VACCINE (1)] Encounters Start End Encounter Admission Attending Care Care Encounter Source Date/Time Date/Time Type Type Clinicians Facility Department ID 2021-02-03 2021-02-03 ANTOINE Ragland [id number] 00:00:00 00:00:00 [facility] [id number] [facility] [id number] Professio [phone] [place] [address] [address] 2020-10-04 2020-10-04 Patient King [facility] [id number] 00:00:00 00:00:00 Outreach Abdulkadir PRIMARY [id number] Jelani [facility] [id number] PAVILLION [id number] 2020-09-01 2020-09-01 [facility] [id number] 00:00:00 00:00:00 [facility] [id number] Edward [place] [id number] Professio [phone] [place] [address] [address] 2020-06-09 2020-06-09 [facility] [id number] 00:00:00 00:00:00 [facility] [id number] Edward [place] [id number] Professio [phone] [place] [address] [address] 2020-04-09 2020-04-09 [facility] [id number] 00:00:00 00:00:00 [facility] [id number] Edward [place] [id number] Professio [phone] [place] [address] [address] 2019-03-28 2019-03-28 [facility] [id number] 08:01:29 08:12:59 Visit Fam [facility] [id number] [place] [id number] Professio [phone] [place] [address] [address] 2019-03-27 2019-03-27 [facility] [id number] 10:16:16 11:02:33 Visit [facility] [id number] Edward [place] [id number] Professio [phone] [place] [address] [address] Results This patient has no known results.
--- NOTE | 2021-02-09 15:35 | RAD REPORT ---
EXAM DESCRIPTION: [place] Single View02/09/2021 3:26 pm CLINICAL HISTORY: Shortness of breath COMPARISON: February 03, 2021 FINDINGS: Minimal opacities left lung base unchanged. The remainder of the lungs appear clear of acute infiltrate. The heart is normal size
[2021-02-09 16:19] LABS: Absolute Lymphocytes (CBC) 1.2 K/uL (0.7-4.9); Hematocrit 45.3 % (36.0-45.0); Lymphocytes % 19.9 % (15.3-44.8); MPV 9.1 fL (7.6-11.3); RBC Red Blood Cell Count 4.89 M/uL (3.86-4.86)
[2021-02-09 16:36] LABS: ALT/SGPT 53 U/L (12-78); AST/SGOT 19 U/L (15-37); Albumin 3.8 g/dL (3.4-5.0); Alkaline Phosphatase 49 U/L (45-117); BUN Blood Urea Nitrogen 17 mg/dL (7-18); Bicarbonate 35 mmol/L (21-32); Bilirubin Direct 0.2 mg/dL (0-0.2); Bilirubin Total 0.7 mg/dL (0.2-1.0); Glucose Level 84 mg/dL (74-106); Magnesium 2.6 mg/dL (1.8-2.4); NT PRO-BNP 135 pg/mL (<125); Potassium 4.1 mmol/L (3.5-5.1); Protein, Total 6.7 g/dL (6.4-8.2); Sodium Level 140 mmol/L (136-145); Troponin (Emerg Dept Use Only) < 0.02 ng/mL (0.0-0.045)
[2021-02-09] MEDS ORDERED: MAGNESIUM SULFATE 1 gm IVPB 1 GM/100 ML BAG IV ONE (16:45)
[2021-02-09] MEDS ORDERED: ALBUTEROL 2.5 MG/3 ML NEB SOL ONE (16:45)
[2021-02-09] MEDS ORDERED: IPRATROPIUM BROM 0.5MG/2.5ML ONE (16:45)
[2021-02-09] MEDS ORDERED: METHYLPREDNISOLONE 125 MG INJ ONE (16:45)
--- NOTE | 2021-02-09 16:56 | ER ---
Nurse's Notes [facility] Name: Baylee Ohara Age: 71 yrs Sex: Female : 1950 Arrival Date: 02/09/2021 Time: 11:53 Bed 17 Private MD: Steve Emery Diagnosis: COPD/ Chronic obstructive pulmonary disease with (acute) exacerbation Presentation: 02/09 12:52 Chief complaint: Patient states: Discharged from upstairs x 4 days ago, reports jl7 continued SOB, N/V/D, denies fever. Coronavirus screen: Client denies travel out of the [place] in the last 14 days. diarrhea, nausea, shortness of breath, vomiting. Client presents with at least one sign or symptom that may indicate coronavirus-19. Standard/surgical mask placed on the client. Provider contacted for isolation considerations. Ebola Screen: No symptoms or risks identified at this time. Initial Sepsis Screen: Does the patient meet any 2 criteria? No. Patient's initial sepsis screen is negative. Does the patient have a suspected source of infection? No. Patient's initial sepsis screen is negative. Risk Assessment: Do you want to hurt yourself or someone else? Patient reports no desire to harm self or others. Onset of symptoms is unknown. 12:52 Method Of Arrival: Wheelchair [facility] 12:52 Acuity: DUSTIN 3 jl7 Triage Assessment: 12:54 General: Appears in no apparent distress. uncomfortable, Behavior is calm, cooperative. jl7 Pain: Denies pain. Respiratory: Reports shortness of breath Onset: The symptoms/episode began/occurred at an unknown time. the patient has mild shortness of breath. 12:54 Cardiovascular: Patient's skin is warm and dry. Respiratory: Airway is patent jl7 Respiratory effort is even, unlabored, Respiratory pattern is regular, symmetrical. Historical: - Allergies: 12:54 Demerol; jl7 12:54 NSAIDS; jl7 - PMHx: 12:54 Chronic obstructive lung disease; RA; jl7 - Immunization history:: Adult Immunizations up to date, Client reports receiving the 2nd dose of the Covid vaccine. - Social history:: Smoking status: Patient reports the use of cigarette tobacco products. Screenin:51 Abuse screen: Denies threats or abuse. Denies injuries from another. Nutritional jm8 screening: No deficits noted. Tuberculosis screening: No symptoms or risk factors identified. Fall Risk None identified. Assessment: 17:32 General: Appears in no apparent distress. Behavior is calm, cooperative, appropriate kg for age, quiet. Pain: Denies pain. Neuro: No deficits noted. Level of Consciousness is awake, alert, obeys commands, Oriented to person, place, time, situation, Appropriate for age. Cardiovascular: Reports shortness of breath, Heart tones S1 S2 Rhythm is regular. Respiratory: Reports shortness of breath at rest on exertion cough that is productive, Airway is patent Breath sounds with crackles Breath sounds are diminished bilaterally. Vital Signs: 12:52 BP 134 / 59; Pulse 71; Resp 18; Temp 97.1; Pulse Ox 98% on 3 lpm NC; Weight 101.6 kg; jl7 Height 5 ft. 2 in. (157.48 cm); Pain 0/10; 12:52 Body Mass Index 40.97 (101.60 kg, 157.48 cm) jl7 ED Course: 11:53 Patient arrived in ED. am2 11:54 Steve Emery MD is Private Physician. am2 12:52 Seferino Calix, ROSANGELA is Primary Nurse. jl7 12:54 Triage completed. jl7 12:54 Arm band placed on right wrist. Patient placed in waiting room, Patient notified of jl7 wait time. 14:47 Alisia Toro FNP-C [facility]. kb 14:47 Riky Hand MD is Attending Physician. kb 15:19 Delilah Santos, RN is Primary Nurse. kg 15:26 XRAY Chest (1 view) In Process Unspecified. EDMS 16:55 Rg Mojica MD is Hospitalizing Provider. kb 19:30 Inserted saline lock: 22 gauge in right upper arm, using aseptic technique. IV is jm8 patent, is intact. 20:51 Patient has correct armband on for positive identification. Bed in low position. Call 8 light in reach. Side rails up X2. Adult w/ patient. 20:52 No provider procedures requiring assistance completed. Patient admitted, IV remains in jm8 place. Administered Medications: 17:15 Drug: DuoNeb (albuterol 2.5 mg, ipratropium 0.5 mg) (3:1) (2.5 mg - 0.5 mg) 3 ml Route: kg Nebulizer; 19:16 Follow up: Response: No adverse reaction jm8 17:20 Drug: Zofran (Ondansetron) 4 mg {Note: Right Shoulder.} Route: IVP; Site: Other; kg 20:32 Follow up: Response: No adverse reaction jm8 17:22 Drug: SOLU-Medrol (methylPrednisoLONE) 125 mg {Note: Right shoulder.} Route: IVP; Site: kg Other; 19:17 Follow up: Response: No adverse reaction jm8 17:31 Drug: Magnesium Sulfate 1 grams {Note: Right shoulder.} Route: IVPB; Infused Over: 30 kg mins; Site: Other; 20:32 Follow up: IV Status: Completed infusion [email or web address] Outcome: 16:56 Decision to Hospitalize by Provider. kb 20:52 Admitted to Med/surg accompanied by nurse, via wheelchair, Report called to Loree mock 20:52 Condition: good 20:52 Instructed on the need for admit, Demonstrated understanding of instructions. 21:10 Patient left the ED. emili Signatures: Dispatcher [employer] EDMS Alisia Toro, ELECTROMECHANISMS DESIGN DRAFTER-C ELECTROMECHANISMS DESIGN DRAFTER-CkSeferino Fournier, RN RN jl7 Shanthi Chung am2 Jv Reina, RN RN jm8 Delilah Santos, ROSANGELA ADAMES kg Corrections: (The following items were deleted from the chart) 12:56 12:52 BP 134 / 59; Pulse 71bpm; Resp 18bpm; Pulse Ox 98%; Temp 97.1F; 101.6 kg; Height jl7 5 ft. 2 in.; BMI: 40.9; Pain 0/10; jl7
--- NOTE | 2021-02-09 16:56 | EDPHYS ---
Physician Documentation [facility] Name: Baylee Ohara Age: 71 yrs Sex: Female : 1950 Arrival Date: 02/09/2021 Time: 11:53 Bed 17 Private MD: Steve Emery ED Physician Riky Hand HPI: 02/09 16:18 This 71 yrs old Female presents to ER via Wheelchair with complaints of kb Breathing Difficulty. 16:18 The patient has shortness of breath at rest. Onset: The symptoms/episode began/occurred kb today. Duration: The symptoms are continuous. The patient's shortness of breath is aggravated by exertion, is alleviated by nothing. Associated signs and symptoms: The patient has no apparent associated signs or symptoms. Severity of symptoms: At their worst the symptoms were moderate in the emergency department the symptoms are unchanged. The patient has not experienced similar symptoms in the past. The patient has not recently seen a physician. Pt reports she was admitted for about 4 days for COPD/Bronchitis, discharged 4 days ago on home oxygen. States she was feeling great, but today started feeling weak with shortness of breath again and nausea. . Historical: - Allergies: 12:54 Demerol; jl7 12:54 NSAIDS; jl7 - PMHx: 12:54 Chronic obstructive lung disease; RA; jl7 - Immunization history:: Adult Immunizations up to date, Client reports receiving the 2nd dose of the Covid vaccine. - Social history:: Smoking status: Patient reports the use of cigarette tobacco products. ROS: 16:17 Constitutional: Negative for fever, chills, and weight loss. kb 16:17 Respiratory: Positive for cough, dyspnea on exertion, shortness of breath, Negative for hemoptysis, orthopnea, pleurisy, sputum production, wheezing. 16:17 Abdomen/GI: Positive for nausea, Negative for abdominal pain, vomiting, diarrhea, constipation. 16:17 Neuro: Positive for weakness. 16:17 All other systems are negative. Exam: 15:32 Constitutional: This is a well developed, well nourished patient who is awake, alert, kb and in no acute distress. Head/Face: Normocephalic, atraumatic. ENT: Moist Mucous membranes Chest/axilla: Normal chest wall appearance and motion. Cardiovascular: Regular rate and rhythm with a normal S1 and S2. No gallops, murmurs, or rubs. No pulse deficits. Abdomen/GI: Soft, non-tender. No distention Skin: Warm, dry with normal turgor. Normal color. MS/ Extremity: Pulses equal, no cyanosis. Neurovascular intact. Full, normal range of motion. Neuro: Awake and alert, GCS 15, oriented to person, place, time, and situation. Moves all extremities. Normal gait. Psych: Awake, alert, with orientation to person, place and time. Behavior, mood, and affect are within normal limits. 15:32 Respiratory: mild respiratory distress is noted, Respirations: normal, Breath sounds: wheezing: expiratory that is moderate, is heard diffusely. 15:33 ECG was reviewed by the Attending Physician. kb Vital Signs: 12:52 BP 134 / 59; Pulse 71; Resp 18; Temp 97.1; Pulse Ox 98% on 3 lpm NC; Weight 101.6 kg; jl7 Height 5 ft. 2 in. (157.48 cm); Pain 0/10; 12:52 Body Mass Index 40.97 (101.60 kg, 157.48 cm) jl7 MDM: 14:47 Patient medically screened. kb 15:32 Data reviewed: vital signs, nurses notes. Data interpreted: Pulse oximetry: on room air kb is 98 %. Interpretation: normal. 16:53 Counseling: I had a detailed discussion with the patient and/or guardian regarding: the kb historical points, exam findings, and any diagnostic results supporting the discharge/admit diagnosis, lab results, radiology results, the need for further work-up and treatment in the hospital. ED course: Pt not comfortable going home. States she can breathe at rest, but has near-syncope upon exertion. . 16:54 Physician consultation: was contacted at 16:55, regarding admission, to the telemetry kb unit. patient's condition, and will see patient in ED, shortly, MICKY Summers contacted. Yunior to admit. 02/09 15:04 Order name: Basic Metabolic Panel; Complete Time: 16:37 kb 02/09 15:04 Order name: CBC with Diff; Complete Time: 16:24 kb 02/09 15:04 Order name: LFT's; Complete Time: 16:37 kb 02/09 15:04 Order name: Magnesium; Complete Time: 16:37 kb 02/09 15:04 Order name: NT PRO-BNP; Complete Time: 16:37 kb 02/09 15:04 Order name: PT-INR kb 02/09 15:04 Order name: Troponin (emerg Dept Use Only); Complete Time: 16:37 kb 02/09 15:04 Order name: XRAY Chest (1 view); Complete Time: 15:36 kb 02/09 16:57 Order name: COVID-19 : Document "Date of Symptom Onset" if Symptomatic. kb 02/09 18:00 Order name: Echo with Doppler EDMS 02/09 19:50 Order name: SARS-COV-2 RT PCR EDMS 02/09 15:04 Order name: EKG; Complete Time: 15:05 kb 02/09 15:04 Order name: Cardiac monitoring; Complete Time: 15:20 kb 02/09 15:04 Order name: EKG - Nurse/Tech; Complete Time: 15:20 kb 02/09 15:04 Order name: IV Saline Lock; Complete Time: 15:20 kb 02/09 15:04 Order name: Labs collected and sent; Complete Time: 15:20 kb 02/09 15:04 Order name: O2 Per Protocol; Complete Time: 19:17 kb 02/09 15:04 Order name: O2 Sat Monitoring; Complete Time: 19:17 kb 02/09 16:21 Order name: Labs - recollect needed; Complete Time: 20:33 mt 02/09 17:29 Order name: Heart Healthy EDMS EC:33 Rate is 53 beats/min. Rhythm is regular. QRS [place] is Normal. CT interval is normal at kb 160 msec. QRS interval is normal at 84 msec. QT interval is normal at 428 msec. Administered Medications: 17:15 Drug: DuoNeb (albuterol 2.5 mg, ipratropium 0.5 mg) (3:1) (2.5 mg - 0.5 mg) 3 ml Route: kg Nebulizer; 19:16 Follow up: Response: No adverse reaction jm8 17:20 Drug: Zofran (Ondansetron) 4 mg {Note: Right Shoulder.} Route: IVP; Site: Other; kg 20:32 Follow up: Response: No adverse reaction jm8 17:22 Drug: SOLU-Medrol (methylPrednisoLONE) 125 mg {Note: Right shoulder.} Route: IVP; Site: kg Other; 19:17 Follow up: Response: No adverse reaction 8 17:31 Drug: Magnesium Sulfate 1 grams {Note: Right shoulder.} Route: IVPB; Infused Over: 30 kg mins; Site: Other; 20:32 Follow up: IV Status: Completed infusion jm8 Disposition: 02/10 06:41 Co-signature as Attending Physician, Riky Hand MD I agree with the assessment and kdr plan of care. Disposition Summary: 02/09/21 16:56 Hospitalization Ordered Hospitalization Status: Observation kb Provider: Rg Mojica Location: Telemetry/MedSurg (observation) kb Condition: Stable kb Problem: new kb Symptoms: are unchanged kb Bed/Room Type: Standard Room Assignment: 207(02/09/21 20:12) mw Diagnosis - COPD/ Chronic obstructive pulmonary disease with (acute) exacerbation kb Forms: - Medication Reconciliation Form kb - SBAR form kb Signatures: Dispatcher [employer] EDMS Alisia Toro FNP-C PUBLIC AID ELIGIBILITY ASSISTANT-Margaret Levin RN RN Riky Hand MD MD [facility] Seferino Calix RN RN Ana Lilia Becerril mt, Kristen, RN RN Jv Reina RN jm8 Corrections: (The following items were deleted from the chart) 02/09 16:25 16:18 Pt reports she was admitted for about 4 days for COPD/Bronchitis, discharged 4 kb days ago. kb 20:12 16:56 kb mw
[2021-02-09] MEDS ORDERED: HYDRALAZINE HCL 20 MG/ML VIAL IV PRN (17:27)
--- NOTE | 2021-02-09 17:30 | P.HP ---
Certification for Inpatient Patient admitted to: Inpatient With expected LOS: >2 Midnights Patient will require the following post-hospital care: None Practitioner: I am a practitioner with admitting privileges, knowledge of patient current condition, hospital course, and medical plan of care. Services: Services provided to patient in accordance with Admission requirements found in Title 42 Section 412.3 of the Code of Federal Regulations <Cristy Jurado - Last Filed: 02/10/21 05:16> Patient History Date of Service: 02/09/21 Reason for admission: SOB History of Present Illness: Patient is a 71-year-old female with a past medical history significant for COPD, rheumatoid arthritis, chronic bronchitis who presents with complaint of shortness of breath. Patient reported that she was discharged from the hospital 4 days ago with similar symptoms. She reported improvement in symptoms until yesterday. Patient is on home O2 therapy at 3 L/min. Patient reported that she started having shortness of breath with exertion yesterday and this morning symptoms became worse. Patient reports that her O2 drops to the mid 80s on room air. Patient reported associated signs and symptoms of nausea, cough, dizziness, weakness, chills and chest tightness. Patient reported that she last smoked 10 days ago. Patient denies any other signs or symptoms. Symptoms are aggravated with exertion and relieved by nothing. Patient decided to present to the hospital due to worsening symptoms. - Past Medical/Surgical History Has patient received pneumonia vaccine in the past: Yes Diabetic: No -: COPD -: Rheumatoid arthritis -: Back fusion -: Left ankle surgery -: Hysterectomy -: Cholecystectomy Psychosocial/ Personal History: Retired, lives with - Family History Mother -: Diabetes, Cancer Father -: Heart disease, Diabetes - Social History Smoking Status: Current every day smoker Counseled patient to stop smoking for: less than 10 minutes Smoking therapy provided: Yes Patient receptive to therapy: Yes Alcohol use: Yes CD- Drugs: No Caffeine use: Yes Place of Residence: Home <Cristy Jurado Devan - Last Filed: 02/10/21 05:16> Date of Service: 02/09/21 <Rg Mojica - Last Filed: 02/12/21 02:04> Allergies meperidine [From Demerol] Allergy (Verified 02/09/21 23:04) Itching/Hives/Rash NSAIDS (Non-Steroidal Anti-Inflamma Allergy (Verified 02/09/21 23:04) Itching/Hives/Rash Home Medications: Albuterol Inhaler [Ventolin Inhaler*] 2 puff IH Q6H PRN 02/02/21 Hydroxychloroquine [Plaquenil*] 400 mg PO DAILY 02/02/21 Leflunomide [Arava] 20 mg PO DAILY 02/02/21 Benzonatate [Tessalon Perle*] 100 mg PO TID PRN 7 Days #21 cap 02/05/21 Guaifen W/Codeine Syrup [ROBITUSSIN A-C Syrup*] 5 ml PO Q8HR PRN 3 Days #9 ucup 02/05/21 Mometasone/Formoterol [Dulera 200 Mcg/5 Mcg Inhaler] 2 puff IH BID 30 Days #1 inhaler 02/05/21 Ondansetron [Zofran] 4 mg PO Q6H PRN 3 Days #10 tab 02/05/21 Roflumilast [Daliresp] 500 mcg PO DAILY 30 Days #30 tablet 02/05/21 predniSONE [Deltasone] 20 mg PO SEECOM 10 Days #15 tab 02/05/21 Review of Systems General: Weakness, Malaise Eyes: Unremarkable ENT: Nose Congestion Respiratory: Cough, Shortness of Breath, SOB with Excertion, Other (Chest tightness ) Cardiovascular: Other (Dyspnea with exertion ), Unremarkable Gastrointestinal: Nausea Genitourinary: Unremarkable Musculoskeletal: Unremarkable Integumentary: Unremarkable Neurological: Weakness Lymphatics: Unremarkable <Cristy Jurado E - Last Filed: 02/10/21 05:16> Physical Examination - Physical Exam General: Alert, In no apparent distress, Oriented x3 HEENT: Atraumatic, PERRLA, Mucous membr. moist/pink, EOMI, Sclerae nonicteric Neck: Supple, 2+ carotid pulse no bruit, No LAD, Without JVD or thyroid abnormality Respiratory: Normal air movement, Diminished Cardiovascular: No edema, Regular rate/rhythm, Normal S1 S2 Capillary refill: <2 Seconds Gastrointestinal: Normal bowel sounds, No tenderness Musculoskeletal: No tenderness Integumentary: No rashes Neurological: Normal gait, Normal speech, Normal strength at 5/5 x4 extr, Normal tone, Normal affect Lymphatics: No axilla or inguinal lymphadenopathy External genitalia: Deferred Rectal: Deferred - Studies Laboratory Data (last 24 hrs) 02/09/21 16:00: WBC 5.80 D, Hgb 14.7, Hct 45.3 H, Plt Count 248 D 02/09/21 16:00: Sodium 140, Potassium 4.1, BUN 17, Creatinine 0.87, Glucose 84, Magnesium 2.6 H, Total Bilirubin 0.7, AST 19, ALT 53, Alkaline Phosphatase 49 <Cristy Jurado - Last Filed: 02/10/21 05:16> Assessment and Plan - Plan --Acute on chronic COPD exacerbation. Patient placed on antibiotics, steroids, Neb treatment with albuterol\Atrovent and O2 therapy. Olive Packer consulted. Will await further recommendations. --Chronic bronchitis. Patient placed on antitussives. Continue steroids. --Rheumatoid arthritis. Continue home medication. --Mildly elevated BNP. Will rule out a cardiac source of dyspnea with exertion. We will get an echocardiogram to assess LV\valvular functions and wall motion. Continue supportive care. --Obesity. Likely secondary to excess calories intake. Patient counseled on diet and exercise therapy. --UTI POA. Continue antibiotics. --Nicotine dependence. Patient counseled on tobacco cessation. Patient reports that she last smoked 10 days ago. Refuses nicotine patch. --DVT prophylaxis with heparin subQ. Discharge Plan: Home Plan to discharge in: Greater than 2 days - Advance Directives Does patient have a Living Will: No Does patient have a Durable POA for Healthcare: Yes - Code Status/Comfort Care Code Status Assessed: Yes Code Status: Full Code Physician Review: Patient Assessed, Agree with Above Assessment and Plan <Cristy Jurado - Last Filed: 02/10/21 05:16> Date of Service: 02/09/21 Chart has been reviewed. Events of the last 24 hr have been noted. Patient admitted a few weeks ago with pneumonia. Readmitted with hypoxemia. Patient really tachypneic and not able to get around well. Will admit for COPD exacerbation. <Rg Mojica - Last Filed: 02/12/21 02:04>
[2021-02-09] MEDS ORDERED: ONDANSETRON 4 MG/2 ML VIAL ONE (17:35)
[2021-02-09 19:38] LABS: Protime INR 0.93
[2021-02-09] MEDS ORDERED: AZITHROMYCIN IV 500 MG in NA CHLORIDE 0.9% 250 ML IVPB SCH (21:00)
[2021-02-09] MEDS: IPRATROPIUM BROM 0.5MG/2.5ML NEB SCH (21:25)
[2021-02-09] MEDS: ALBUTEROL 2.5 MG/3 ML NEB SOL NEB SCH (21:25)
[2021-02-09] MEDS ORDERED: AZITHROMYCIN 500 MG INJ IVPB ONE ×2 (23:31)
[2021-02-09] MEDS ORDERED: DIPHENHYDRAMINE 25 MG TAB/CAP PO ONE (23:49)
[2021-02-09] MEDS ORDERED: NA CHLORIDE 0.9% 250 ML ONE (23:57)
[2021-02-10] MEDS: IPRATROPIUM BROM 0.5MG/2.5ML NEB SCH ×4 (02:15→19:10)
[2021-02-10] MEDS: ALBUTEROL 2.5 MG/3 ML NEB SOL NEB SCH ×4 (02:15→19:10)
[2021-02-10] MEDS: METHYLPREDNISOLONE 40 MG INJ IV SCH ×3 (03:09→15:58)
[2021-02-10] MEDS: HEPARIN 5000 UNIT/ML 1 ML VIAL SQ SCH ×3 (03:09→15:58)
[2021-02-10 03:53] VITALS: BMI 40.9
[2021-02-10] MEDS: ACETAMINOPHEN 500 MG TAB PO PRN ×2 (04:16→10:02)
[2021-02-10 04:30] LABS: Urine Appearance CLEAR (Clear); Urine Bilirubin NEGATIVE (Negative); Urine Blood NEGATIVE (Negative); Urine Color YELLOW (Yellow); Urine Glucose TRACE (Negative); Urine Protein NEGATIVE (Negative); Urine Urobilinogen 0.2 mg/dL (0.2-1.0)
[2021-02-10 04:40] LABS: Urine Microscopic Reflex ORDER UMIC
[2021-02-10] MEDS ORDERED: guaiFENesin 100 MG/5 ML UCUP PO PRN (05:26)
[2021-02-10 05:44] LABS: Urine RBC <5 /HPF (NONE SEEN)
[2021-02-10 05:45] LABS: Urine Bacteria >50 /HPF (<20)
[2021-02-10 06:21] LABS: Absolute Lymphocytes (CBC) 0.3 K/uL (0.7-4.9); Basophils % 0.1 % (0-1.3); Hematocrit 37.5 % (36.0-45.0); Lymphocytes % 8.1 % (15.3-44.8); MPV 8.9 fL (7.6-11.3); RBC Red Blood Cell Count 4.05 M/uL (3.86-4.86)
--- NOTE | 2021-02-10 07:30 | EKG ---
Test Date: 2021-02-09 Test Time: 15:28:24 Engraved Roller Inspector: SERAFIN MEASUREMENT RESULTS: Intervals: Rate: 53 [place]: 160 QRSD: 84 QT: 428 QTc: 401 [place]: P: 71 [place]: 160 QRS: 55 T: 48 INTERPRETIVE STATEMENTS: Sinus bradycardia Otherwise normal ECG Compared to ECG 02/01/2021 19:52:54 Sinus rhythm no longer present Electronically Signed On 02-10-21 07:29:06 CDT by Hiram Dutta
[2021-02-10 07:37] LABS: Blood Morphology Comment NOT SEEN (NOT SEEN); Platelet Estimate ADEQ
[2021-02-10] MEDS ORDERED: Levofloxacin500mg IV 500 MG/100 ML BAG IV SCH (08:00)
--- NOTE | 2021-02-10 14:07 | ECHO ---
HEIGHT: 5 ft 2 in WEIGHT: 224 lb 0 oz DATE OF STUDY: 02/10/[address]: Cristy Jurado 2-DIMENSIONAL: YES M.MODE: YES DOPPLER: YES COLOR FLOW: YES TDS: NO PORTABLE: NO DEFINITY: NO BUBBLE STUDY: NO DIAGNOSIS: DYSPNEA WITH EXERTION TO RULE OUT CARDIAC SOURCE CARDIAC HISTORY: CATHERIZATION: NO SURGERY: NO PROSTHETIC VALVE: NO PACEMAKER: NO MEASUREMENTS (cm) DIASTOLIC (NORMALS) SYSTOLIC (NORMALS) IVSd 1.0 (0.6-1.2) LA Diam 2.9 (1.9-4.0) LVEF 55% LVIDd 4.1 (3.5-5.7) LVIDs 2.9 (2.0-3.5) %FS 28% LVPWd 1.2 (0.6-1.2) Ao Diam 2.7 (2.0-3.7) 2 DIMENSIONAL ASSESSMENT: RIGHT ATRIUM: NORMAL LEFT ATRIUM: NORMAL RIGHT VENTRICLE: NORMAL LEFT VENTRICLE: NORMAL TRICUSPID VALVE: MITRAL VALVE: PULMONIC VALVE: NORMAL AORTIC VALVE: NORMAL PERICARDIAL EFFUSION: NONE AORTIC ROOT: NORMAL LEFT VENTRICULAR WALL MOTION: NORMAL DOPPLER/COLOR FLOW: SEE BELOW. COMMENTS: NORMAL LEFT VENTRICULAR EJECTION FRACTION 55-60%. NORMAL WALL MOTION. TRACE MITRAL REGURGITATION. TRACE TRICUSPID REGURGITATION. NORMAL DIASTOLIC FUNCTION. TECHNOLOGIST: Neli JIMENEZ
[2021-02-10] MEDS ORDERED: DIPHENHYDRAMINE 25 MG TAB/CAP PO ONE (21:16)
[2021-02-10] MEDS: HYDROCODONE/APAP 5/325 MG TAB PO PRN (21:40)
--- NOTE | 2021-02-10 21:42 | P.CNS ---
Date of Consult: 02/10/21 (TV) Reason for Consult: COPD exacerbation Chief Complaint: SOB History of Present Illness: PT is 71 yrs of age became acutely worse with SOB cough. Doign better today/ complaintwith Tx at home Allergies meperidine [From Demerol] Allergy (Verified 02/09/21 23:04) Itching/Hives/Rash NSAIDS (Non-Steroidal Anti-Inflamma Allergy (Verified 02/09/21 23:04) Itching/Hives/Rash Home Medications: Albuterol Inhaler [Ventolin Inhaler*] 2 puff IH Q6H PRN 02/02/21 Hydroxychloroquine [Plaquenil*] 200 mg PO DAILY 02/02/21 Leflunomide [Arava] 20 mg PO DAILY 02/02/21 Benzonatate [Tessalon Perle*] 100 mg PO TID PRN 7 Days #21 cap 02/05/21 Guaifen W/Codeine Syrup [ROBITUSSIN A-C Syrup*] 5 ml PO Q8HR PRN 3 Days #9 ucup 02/05/21 Mometasone/Formoterol [Dulera 200 Mcg/5 Mcg Inhaler] 2 puff IH BID 30 Days #1 in haler 02/05/21 Ondansetron [Zofran] 4 mg PO Q6H PRN 3 Days #10 tab 02/05/21 Roflumilast [Daliresp] 500 mcg PO DAILY 30 Days #30 tablet 02/05/21 predniSONE [Deltasone] 20 mg PO SEECOM 10 Days #15 tab 02/05/21 - Past Medical/Surgical History Diabetic: No -: COPD -: Rheumatoid arthritis -: Back fusion -: Left ankle surgery -: Hysterectomy -: Cholecystectomy Psychosocial/ Personal History: Retired, lives with - Family History Mother Medical History: Diabetes, Cancer Father Medical History: Heart disease, Diabetes - Social History Smoking Status: Current every day smoker Alcohol use: Yes CD- Drugs: No Caffeine use: Yes Place of Residence: Home Review of Systems Respiratory: Cough, Shortness of Breath Physical Examination Temp Pulse Resp BP Pulse Ox 97.9 F 92 H 20 127/60 98 02/10/21 20:00 02/10/21 20:00 02/10/21 20:00 02/10/21 20:00 02/10/21 20:00 - Problems (1) COPD exacerbation Current Visit: No Status: Acute Plan: PT is age 71 AW COPD exacerbation. Doing better/CXRY clear/ NE of sepsis/ SAt Satisfactory/ CXRY clear C CILD/ Doubt sepsis PT has dulera and Advair/ Change to PO pred/ poss discharge home am/ requests pulmanary rehab/Has RA onDMRD/ poss Dc am
[2021-02-11] MEDS: ALBUTEROL 2.5 MG/3 ML NEB SOL NEB SCH ×4 (01:50→20:00)
[2021-02-11] MEDS: IPRATROPIUM BROM 0.5MG/2.5ML NEB SCH ×4 (01:50→20:00)
[2021-02-11] MEDS ORDERED: predniSONE 20 MG TAB PO SCH (09:00)
[2021-02-11] MEDS ORDERED: ONDANSETRON 4 MG (ODT) TAB PO PRN (15:07)
[2021-02-11] MEDS ORDERED: BENZONATATE 100 MG CAP PO PRN (15:07)
[2021-02-11] MEDS ORDERED: GUAIFENESIN/CODEINE 5ML UCUP PO PRN (15:07)
[2021-02-11] MEDS ORDERED: ALBUTEROL INHALER 60 PUFF/8 GM IH PRN (16:04)
[2021-02-11] MEDS: DULERA 200/5 (MOMETASONE/FORMOTEROL) INHALER IH SCH (21:28)
--- NOTE | 2021-02-12 02:08 | P.PN ---
Subjective Date of Service: 02/10/21 Patient's respiratory status is stable. Patient is doing better. Weaning down patient oxygenation. Awaiting pulmonary consultation. Review of Systems 10-point ROS is otherwise unremarkable Physical Examination - Vital Signs Temperature: 98.7 F Blood Pressure: 136/63 Pulse: 75 Respirations: 20 Pulse Ox (%): 96 - Physical Exam General: Alert, In no apparent distress, Oriented x3 Respiratory: Diminished, Expiratory wheezes Cardiovascular: Regular rate/rhythm, Normal S1 S2, Systolic murmur Gastrointestinal: Normal bowel sounds, Soft and benign, Non-distended, No tenderness, No rebound, No guarding Musculoskeletal: No clubbing, No swelling, No tenderness Neurological: Sensation intact, Cranial nerves 3-12 intact - Studies Medications List Reviewed: Yes Assessment & Plan - Problems (Diagnosis) (1) COPD with acute exacerbation Current Visit: Yes Status: Acute - Plan Plan: 1. Continue with albuterol and Atrovent nebs 2. Continue with IV steroids 3. Outpatient pulmonary function testing 4. Pulmonary consultation pending 5. Room air O2 sats 6. Repeat chest x-ray in the morning if symptoms worsening 7. GI and DVT prophylaxis Discharge Plan: Home Plan to discharge in: Greater than 2 days - Advance Directives Does patient have a Living Will: No Does patient have a Durable POA for Healthcare: Yes - Code Status/Comfort Care Code Status: Full Code Physician Review: Patient Assessed, Agree with Above Assessment and Plan Critical Care: No Time Spent Managing PTS Care (In Minutes): 35
--- NOTE | 2021-02-12 02:14 | P.PN ---
Date of Service: 02/11/21 Subjective Patient clinical symptoms are improving. Pulmonary wanted patient to have [facility] facility. Patient was evaluated by physical therapy and walk 300 feet. Told by case management that she would not qualify because she walked 300 feet. Discuss with patient and she is not able to care for herself at home and does not have any help. Will have case management talk with family regarding discharge planning Review of Systems 10-point ROS is otherwise unremarkable Physical Examination - Vital Signs Reviewed - Physical Exam General: Alert, In no apparent distress, Oriented x3 Respiratory: Clear bilaterally except for end-expiratory wheezing Cardiovascular: Regular rate/rhythm, Normal S1 S2, Systolic murmur Gastrointestinal: Normal bowel sounds, Soft and benign, Non-distended, No tenderness, No rebound, No guarding Musculoskeletal: No clubbing, No swelling, No tenderness Neurological: Sensation intact, Cranial nerves 3-12 intact Assessment & Plan - Problems (Diagnosis) (1) COPD with acute exacerbation with hypoxemia Current Visit: Yes Status: Acute - Plan Continue with plan of care as mentioned below: 1. Continue with albuterol and Atrovent nebs 2. Continue with IV steroids 3. Outpatient pulmonary function testing 4. Pulmonary consultation appreciated; [facility] facility placement recommended; case management to speak with patient regarding discharge planning 5. Room air O2 sats 6. Repeat chest x-ray in the morning if symptoms worsening 7. GI and DVT prophylaxis
[2021-02-12] MEDS: IPRATROPIUM BROM 0.5MG/2.5ML NEB SCH (02:20)
[2021-02-12] MEDS: ALBUTEROL 2.5 MG/3 ML NEB SOL NEB SCH (02:20)
--- NOTE | 2021-02-12 06:01 | P.PN ---
Subjective Date of Service: 02/12/21 Chief Complaint: SOB Subjective: Improving, Doing well Physical Examination - Vital Signs Temperature: 97.7 F Blood Pressure: 138/65 Pulse: 66 Respirations: 26 Pulse Ox (%): 95 - Studies Medications List Reviewed: Yes Assessment & Plan Discharge Plan: Home Plan to discharge in: 48 Hours Physician Review Additional Text: Physical Exam: General: Alert, In no apparent distress, Oriented x3 Respiratory: Clear bilaterally except for end-expiratory wheezing currently on 1.5 L. Cardiovascular: Regular rate/rhythm, Normal S1 S2, Systolic murmur Gastrointestinal: Normal bowel sounds, Soft and benign, Non-distended, No tenderness, No rebound, No guarding Musculoskeletal: No clubbing, No swelling, No tenderness Neurological: Sensation intact, Cranial nerves 3-12 intact Impression: COPD exacerbation with hypoxia Rheumatoid Arthritis Asymptomatic dysuria Plan: Continue with plan of care as mentioned below: 1. Continue with albuterol and Atrovent nebs 2. Continue with Prednisone. Continue with COPD medication. Wean off oxygen. 3. Continue with RA medication. 4. Wean off oxygen. Continue with physical therapy. Patient desires to go to a skilled facility to continue to wean off oxygen and to rehabilitate. If she is able to get off oxygen appropriately than she would consider going home. Other option would be home health and home oxygen. She prefers not to go home with oxygen is her best case scenario. 5. Patient with asymptomatic dysuria. We will monitor this closely. CODE STATUS: Full code DVT prophylaxis: Lovenox Advanced care [id number] minutes: Skilled placement versus home without oxygen Time Spent Managing Pts Care (In Minutes): 55
[2021-02-12] MEDS ORDERED: ALBUTEROL 2.5 MG/3 ML NEB SOL NEB PRN (07:21)
[2021-02-12] MEDS ORDERED: IPRATROPIUM BROM 0.5MG/2.5ML NEB PRN (07:21)
[2021-02-12] MEDS ORDERED: HOME MED 1 EA UNK (Leflunomide [Arava] 20 MG Tablet) PO SCH (09:00)
[2021-02-12] MEDS ORDERED: HYDROXYCHLOROQUINE 200MG TAB PO SCH (09:00)
[2021-02-12] MEDS ORDERED: predniSONE 20 MG TAB PO SCH (09:00)
[2021-02-12] MEDS: predniSONE 20 MG TAB PO SCH ×2 (09:16→21:46)
[2021-02-12] MEDS: ROFLUMILAST 500 MCG TABLET PO SCH (09:16)
[2021-02-12] MEDS: DULERA 200/5 (MOMETASONE/FORMOTEROL) INHALER IH SCH ×2 (09:17→21:00)
[2021-02-12] MEDS: ONDANSETRON 4 MG/2 ML VIAL IV PRN (19:28)
--- NOTE | 2021-02-13 05:58 | P.PN ---
Subjective Date of Service: 02/13/21 Chief Complaint: SOB Subjective: Improving (Now off oxygen. Reports still feeling weak.) Physical Examination - Vital Signs Temperature: 97.2 F Blood Pressure: 115/68 Pulse: 73 Respirations: 17 Pulse Ox (%): 94 - Studies Medications List Reviewed: Yes Assessment & Plan Discharge Plan: Other (Home vs SNF) Plan to discharge in: 24 Hours Physician Review Additional Text: Physical Exam: General: Alert, In no apparent distress, Oriented x3 Respiratory: Clear bilaterally except for end-expiratory wheezing currently on 1.5 L. Cardiovascular: Regular rate/rhythm, Normal S1 S2, Systolic murmur Gastrointestinal: Normal bowel sounds, Soft and benign, Non-distended, No tenderness, No rebound, No guarding Musculoskeletal: No clubbing, No swelling, No tenderness Neurological: Sensation intact, Cranial nerves 3-12 intact Impression: COPD exacerbation with hypoxia Rheumatoid Arthritis Asymptomatic dysuria-UTI, urine culture positive for E. Coli Plan: Continue with plan of care as mentioned below: 1. Continue with albuterol and Atrovent nebs 2. Continue with Prednisone. Continue with COPD medication. Now off oxygen. Will continue to monitor her oxygen level. 3. Continue with RA medication. 4. Continue with physical therapy. Patient desires to go to a skilled facility to rehabilitate. If she is able to get off oxygen and ambulating then she would consider going home. Her preferred option would be SNF to build her stamina. She prefers not to go home with oxygen is her best case scenario. Await PT evaluation. Await decision on insurance tomorrow. 5. Patient with asymptomatic dysuria but urine culture is positive. Will treat with Ceftin. UTI prevention. CODE STATUS: Full code DVT prophylaxis: Lovenox Advanced care [id number] minutes: Skilled placement versus home without oxygen Time Spent Managing Pts Care (In Minutes): 55
[2021-02-13] MEDS: LACTOBACILLUS/ACIDOPHILUS TAB PO SCH ×2 (08:15→20:40)
[2021-02-13] MEDS: predniSONE 20 MG TAB PO SCH ×2 (08:15→20:40)
[2021-02-13] MEDS: CEFUROXIME 250 MG TAB PO SCH ×2 (08:15→20:40)
[2021-02-13] MEDS: ROFLUMILAST 500 MCG TABLET PO SCH (08:15)
[2021-02-13] MEDS: PLAQUENIL 200 MG PO SCH (08:16)
[2021-02-13] MEDS: HOME MED 1 EA UNK (Leflunomide [Arava] 20 MG Tablet) PO SCH (08:17)
[2021-02-13] MEDS: DULERA 200/5 (MOMETASONE/FORMOTEROL) INHALER IH SCH ×2 (08:18→21:00)
[2021-02-13] MEDS: ONDANSETRON 4 MG/2 ML VIAL IV PRN ×3 (10:07→20:41)
[2021-02-13] MEDS: HYDROCODONE/APAP 5/325 MG TAB PO PRN (20:41)
--- NOTE | 2021-02-14 06:03 | P.PN ---
Subjective Date of Service: 02/14/21 Chief Complaint: SOB Subjective: Other (She is doing well. She is off oxygen for 2 days. Her mobility is better.) Physical Examination - Vital Signs Temperature: 97.3 F Blood Pressure: 148/65 Pulse: 65 Respirations: 18 Pulse Ox (%): 90 - Studies Medications List Reviewed: Yes Assessment & Plan Discharge Plan: Other (half-way facility) Plan to discharge in: 24 Hours Physician Review Additional Text: Physical Exam: General: Alert, In no apparent distress, Oriented x3 Respiratory: Clear bilaterally except for end-expiratory wheezing currently on 1.5 L. Cardiovascular: Regular rate/rhythm, Normal S1 S2, Systolic murmur Gastrointestinal: Normal bowel sounds, Soft and benign, Non-distended, No tenderness, No rebound, No guarding Musculoskeletal: No clubbing, No swelling, No tenderness Neurological: Sensation intact, Cranial nerves 3-12 intact Impression: COPD exacerbation with hypoxia Rheumatoid Arthritis Asymptomatic dysuria-UTI, urine culture positive for E. Coli Plan: Continue with plan of care as mentioned below: 1. Continue with albuterol and Atrovent nebs 2. Continue with Prednisone. Continue with COPD medication. Now off oxygen. Will continue to monitor her oxygen level. 3. Continue with RA medication. 4. Continue with physical therapy. Patient continues to improve. Patient still desires to go to [facility] facility to increase her pulmonary stamina. Await recommendations from insurance and social work. If this is not approved then patient will consider going home . 5. Patient with asymptomatic dysuria but urine culture is positive. Will treat with Ceftin. UTI prevention. CODE STATUS: Full code DVT prophylaxis: Lovenox Advanced care minutes: Skilled placement versus home without oxygen Time Spent Managing Pts Care (In Minutes): 55
[2021-02-14] MEDS: ROFLUMILAST 500 MCG TABLET PO SCH (08:44)
[2021-02-14] MEDS: LACTOBACILLUS/ACIDOPHILUS TAB PO SCH (08:44)
[2021-02-14] MEDS: predniSONE 20 MG TAB PO SCH (08:44)
[2021-02-14] MEDS: ONDANSETRON 4 MG/2 ML VIAL IV PRN ×2 (08:45→13:54)
[2021-02-14] MEDS: CEFUROXIME 250 MG TAB PO SCH (08:45)
[2021-02-14] MEDS: DULERA 200/5 (MOMETASONE/FORMOTEROL) INHALER IH SCH (08:46)
[2021-02-14] MEDS: PLAQUENIL 200 MG PO SCH (08:47)
[2021-02-14] MEDS: HOME MED 1 EA UNK (Leflunomide [Arava] 20 MG Tablet) PO SCH (08:48)
[2021-02-14 15:34] VITALS: O2SAT 92
--- NOTE | 2021-02-14 16:11 | P.DS ---
Admission Date: 02/09/21 Discharge Date: 02/14/21 Primary Care Provider: Dr. Emery Disposition: TRANSFER TO SNF - MEDICAL Discharge Condition: GOOD Reason for Admission: SOB Consultations: PulmonologyDr. Ghotra Procedures: CXR: COMPARISON: February 03, 2021 FINDINGS: Minimal opacities left lung base unchanged. The remainder of the lungs appear clear of acute infiltrate. The heart is normal size ECHO: MEASUREMENTS (cm) DIASTOLIC (NORMALS) SYSTOLIC (NORMALS) IVSd 1.0 (0.6-1.2) LA Diam 2.9 (1.9-4.0) LVEF 55% LVIDd 4.1 (3.5-5.7) LVIDs 2.9 (2.0-3.5) %FS 28% LVPWd 1.2 (0.6-1.2) Ao Diam 2.7 (2.0-3.7) 2 DIMENSIONAL ASSESSMENT: RIGHT ATRIUM: NORMAL LEFT ATRIUM: NORMAL RIGHT VENTRICLE: NORMAL LEFT VENTRICLE: NORMAL TRICUSPID VALVE: MITRAL VALVE: PULMONIC VALVE: NORMAL AORTIC VALVE: NORMAL PERICARDIAL EFFUSION: NONE AORTIC ROOT: NORMAL LEFT VENTRICULAR WALL MOTION: NORMAL DOPPLER/COLOR FLOW: SEE BELOW. COMMENTS: NORMAL LEFT VENTRICULAR EJECTION FRACTION 55-60%. NORMAL WALL MOTION. TRACE MITRAL REGURGITATION. TRACE TRICUSPID REGURGITATION. NORMAL DIASTOLIC FUNCTION. Medical problem list: COPD exacerbation with hypoxia Rheumatoid Arthritis Asymptomatic dysuria-UTI, urine culture positive for E. Coli Brief History of Present Illness: 71-year-old female with history of COPD, rheumatoid arthritis presented with shortness of breath. Patient was evaluated in the emergency room. Patient required hospitalization to further evaluate. Hospital Course: Patient presented with COPD exacerbation. Patient required hospitalization. During the course of her stay patient received IV steroids with COPD treatment. Her condition improved. Patient was able to be weaned off oxygen. Patient requested to go to a skilled facility to continue rehabilitation. Patient was accepted. At discharge patient will continue at the skilled facility. At discharge she will continue with prednisone 20 mg 1 pill twice daily for 7 days and 1 pill once daily for 7 days. The patient will be provided Tessalon Perles 100 mg 3 times a day as needed for cough. The patient will continue with COPD treatment including Dulera 2 puffs twice daily, Daliresp 500 mcg 1 pill daily, and albuterol 2 puffs 3 times a day as needed for shortness of breath. Recommend to establish care with pulmonology as an outpatient to further monitor and address her condition. Patient should follow-up with her PCP in 1 to 2 weeks to follow his hospitalization and further her care. Patient with underlying rheumatoid arthritis. At discharge patient will continue with her medications including Plaquenil 40 mg daily and Arava 20 mg 1 pill daily. Recommend follow-up with her PCP or bench worker to further address her condition. Patient had asymptomatic dysuria. Urine culture was positive for E. coli. During the course of her stay the patient had some dysuria. Patient was started on medication. Patient initially started on Ceftin but that caused some nausea. This was switched to Augmentin 500 mg twice daily for 7 days. UTI prevention provided. This can be followed up as an outpatient. Vital Signs/Physical Exam: Temp Pulse Resp BP Pulse Ox 97.3 F 65 18 148/65 H 90 L 02/14/21 14:32 02/14/21 14:32 02/14/21 14:32 02/14/21 14:32 02/14/21 14:32 General: Alert, In no apparent distress, Oriented x3, Cooperative HEENT: Atraumatic Neck: Supple Respiratory: Clear to auscultation bilaterally, Normal air movement Cardiovascular: Normal pulses, Regular rate/rhythm Gastrointestinal: Normal bowel sounds, No tenderness, No masses, No rebound, No guarding Musculoskeletal: No erythema, No tenderness, No warmth Integumentary: No tenderness/swelling Neurological: Normal speech, Normal strength at 5/5 x4 extr, Normal tone, Normal affect Laboratory Data at Discharge: WBC 4.30 K/uL (4.3-10.9) D 02/10/21 06:12 Hgb 12.5 g/dL (12.0-15.0) 02/10/21 06:12 Hct 37.5 % (36.0-45.0) D 02/10/21 06:12 Plt Count 195 K/uL (152-406) D 02/10/21 06:12 PT 10.7 SECONDS (9.5-12.5) 02/09/21 19:22 INR 0.93 02/09/21 19:22 Sodium 143 mmol/L (136-145) 02/10/21 06:12 Potassium 4.0 mmol/L (3.5-5.1) 02/10/21 06:12 BUN 13 mg/dL (7-18) 02/10/21 06:12 Creatinine 0.73 mg/dL (0.55-1.3) 02/10/21 06:12 Glucose 208 mg/dL (74-106) H 02/10/21 06:12 Magnesium 2.6 mg/dL (1.8-2.4) H 02/09/21 16:00 Total Bilirubin 0.7 mg/dL (0.2-1.0) 02/09/21 16:00 AST 19 U/L (15-37) 02/09/21 16:00 ALT 53 U/L (12-78) 02/09/21 16:00 Alkaline Phosphatase 49 U/L (45-117) 02/09/21 16:00 Troponin I < 0.02 ng/mL (0.0-0.045) 02/09/21 22:09 Home Medications: Albuterol Inhaler [Ventolin Inhaler*] 2 puff IH Q6H PRN 02/02/21 Hydroxychloroquine [Plaquenil*] 400 mg PO DAILY 02/02/21 Leflunomide [Arava] 20 mg PO DAILY 02/02/21 Amox/Clavulanate [Augmentin 500-125 mg Tab*] 500 mg PO BID #14 tab 02/14/21 Benzonatate [Tessalon Perle*] 100 mg PO TID PRN 7 Days #10 cap 02/14/21 Mometasone/Formoterol [Dulera 200 Mcg/5 Mcg Inhaler] 2 puff IH BID #1 inhaler 02/14/21 Roflumilast [Daliresp] 500 mcg PO DAILY 30 Days tablet 02/14/21 predniSONE [Prednisone*] 20 mg PO SEECOM #21 tab 02/14/21 New Medications: Amox/Clavulanate [Augmentin 500-125 mg Tab*] 500 mg PO BID #14 tab Roflumilast [Daliresp] 500 mcg PO DAILY 30 Days tablet Mometasone/Formoterol [Dulera 200 Mcg/5 Mcg Inhaler] 2 puff IH BID #1 inhaler predniSONE [Prednisone*] 20 mg PO SEECOM #21 tab Benzonatate [Tessalon Perle*] 100 mg PO TID PRN 7 Days #10 cap PRN Reason: Cough Physician Discharge Instructions: Patient presented with COPD exacerbation. Patient required hospitalization. During the course of her stay patient received IV steroids with COPD treatment. Her condition improved. Patient was able to be weaned off oxygen. Patient r equested to go to a skilled facility to continue rehabilitation. Patient was accepted. At discharge patient will continue at the skilled facility. At discharge she will continue with prednisone 20 mg 1 pill twice daily for 7 days and 1 pill once daily for 7 days. The patient will be provided Tessalon Perles 100 mg 3 times a day as needed for cough. The patient will continue with COPD treatment including Dulera 2 puffs twice daily, Daliresp 500 mcg 1 pill daily, and albuterol 2 puffs 3 times a day as needed for shortness of breath. Recommend to establish care with pulmonology as an outpatient to further monitor and address her condition. Patient should follow-up with her PCP in 1 to 2 weeks to follow his hospitalization and further her care. Patient with underlying rheumatoid arthritis. At discharge patient will continue with her medications including Plaquenil 40 mg daily and Arava 20 mg 1 pill daily. Recommend follow-up with her PCP or bench worker to further address her condition. Patient had asymptomatic dysuria. Urine culture was positive for E. coli. During the course of her stay the patient had some dysuria. Patient was started on medication. Patient initially started on Ceftin but that caused some nausea. This was switched to Augmentin 500 mg twice daily for 7 days. UTI prevention provided. This can be followed up as an outpatient. Diet: AHA Activity: Ad husam Followup: Steve Emery MD [Primary Care Provider] - Time spent managing pt's care (in minutes): 55
[2021-02-14 17:47] VITALS: BP 149/65; TEMP 97
[2021-02-14] MEDS ORDERED: AMOX/K CLAV 500 MG TAB PO SCH (21:00)
== END 2021-02-14 18:11 | DRG 191 ==
LOC: ER 11:51 → ERHOLD 17:13 → 2ND 20:53
PROVIDERS: ADMIT Hospitalist; ATTEND Family Medicine
DX: J44.1 Chronic obstructive pulmonary disease with (acute) exacerbation (principal); N39.0 Urinary tract infection, site not specified; Z68.41 Body mass index [BMI] 40.0-44.9, adult; E66.9 Obesity, unspecified; M06.9 Rheumatoid arthritis, unspecified; F17.210 Nicotine dependence, cigarettes, uncomplicated; B96.20 Unspecified Escherichia coli [E. coli] as the cause of diseases classified elsewhere; R79.89 Other specified abnormal findings of blood chemistry; R30.0 Dysuria; R09.02 Hypoxemia; Z99.81 Dependence on supplemental oxygen; Z88.5 Allergy status to narcotic agent; Z90.710 Acquired absence of both cervix and uterus; Z90.49 Acquired absence of other specified parts of digestive tract; Z79.52 Long term (current) use of systemic steroids; Z79.899 Other long term (current) drug therapy; Z20.822 Contact with and (suspected) exposure to COVID-19
CPT/HCPCS: 36415; 71045; 80048; 80076; 81003; 81015; 83735; 83880; 84484; 85025; 85610; 87077; 87086; 87088; 87186; 93005; 93306; 94640; 96365; 96366; 96375; 97161; 99285; J0456; J1644; J2405; J2920; J2930; J3475; J7050; J7512; U0003

== ENCOUNTER 2024-05-06 07:52 | Day surgery (SDC) | payer OTHER ==
[2024-05-05 10:40] LABS: Anion Gap 7.9 mEq/L (5.0-15.0); Potassium 3.9 mEq/L (3.5-5.1)
[2024-05-05 10:42] LABS: Absolute Eosinophils 0.2 K/uL (0-0.5); Absolute Lymphocytes (CBC) 1.3 K/uL (0.7-4.9); Absolute Monocytes 0.3 K/uL (0.1-1.3); Absolute Neutrophil 3.1 K/uL (1.8-8.0); Basophils % 0.5 % (0-1.3); Eosinophils % 3.2 % (0-4.4); Hematocrit 46.1 % (36.0-45.0); Hemoglobin 15.7 g/dL (12.0-15.0); Lymphocytes % 26.8 % (15.3-44.8); MCH 34.8 pg (27.0-35.0); MCV 102.5 fL (80-100); MPV 8.7 fL (7.6-11.3); Neutrophils % 63.5 % (41.7-73.7); Platelets 223 thou/uL (152-406)
--- NOTE | 2024-05-05 11:51 | EKG ---
Test Date: 2024-05-05 Test Time: 09:46:56 Forwarder Operator: NAVEED MEASUREMENT RESULTS: Intervals: Rate: 62 [place]: 156 QRSD: 84 QT: 396 QTc: 401 [place]: P: 81 [place]: 156 QRS: 73 T: 73 INTERPRETIVE STATEMENTS: Sinus rhythm with premature atrial complexes Otherwise normal ECG Compared to ECG 02/09/2021 15:28:24 Atrial premature complex(es) now present Sinus bradycardia no longer present Electronically Signed On 05-05-24 11:50:14 CDT by Diogenes Sandoval
[2024-05-06] MEDS: Ringers Lactate 1,000 ML IV ONE (08:25)
[2024-05-06] MEDS ORDERED: ONDANSETRON 4 MG/2 ML VIAL ONE (08:28)
[2024-05-06] MEDS ORDERED: LIDOCAINE 2% MPF 5 ML VIAL ONE (08:28)
[2024-05-06] MEDS ORDERED: FENTANYL CITR 100 MCG/2 ML ONE ×2 (08:28→10:09)
[2024-05-06] MEDS ORDERED: propofoL 200 MG/20 ML VIAL IV ONE (08:28)
[2024-05-06] MEDS ORDERED: MIDAZOLAM HCL 2 MG/2 ML INJ ONE (09:32)
[2024-05-06] MEDS ORDERED: dexAMETHasone 10 MG/ML VIAL ONE (09:43)
[2024-05-06] MEDS ORDERED: GLYCOPYRROLATE 0.2 MG/ML SYR ONE (09:43)
[2024-05-06] MEDS: CLINDAMYCIN 900MG/D5W 900 MG/50 ML IVPB IV ONE (09:43)
[2024-05-06] MEDS ORDERED: EPHEDRINE SULF 50 MG/ML VIAL ONE (09:44)
[2024-05-06] MEDS: FENTANYL CITR 100 MCG/2 ML ONE (10:47)
[2024-05-06 12:05] VITALS: BP 128/73; TEMP 97.1; O2SAT 97
--- NOTE | 2024-05-06 20:32 | OP ---
Date of Procedure: 05/06/2024 Surgeon: Zach Barcenas MD Preoperative Diagnoses: Right knee pain with mechanical symptoms, probable medial and lateral menisc al tear as well as some degree of degenerative change. 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 2.Grade 2 chondromalacia of patellofemoral joint. 3.Medial meniscal tear. 4.Lateral meniscal tear. Procedures: Right knee arthroscopy with medial meniscal and lateral meniscal debridement. Estimated Blood Loss: Less than 10 cc. Complications: There were no complications. Indications For Operation: Ms. Ohara is a 74-year-old female who has had trouble with her knee for s ome time. She described mechanical symptoms such as clicking and locking. She does have an MRI whic h demonstrates some degenerative changes as well as tear of the medial meniscus and lateral meniscus. Risks, benefits, and alternatives of different methods of treating this had been discussed with her including the idea that arthroscopy is not indicated for degenerative chondral lesions, however, cou ld be helpful from mechanical symptoms. She says she understands everything as presented and wishes to proceed. Description Of Procedure: Patient was taken to the operating room, placed in supine position. Gener al anesthesia was easily obtained by the Anesthesia staff. Following this, a well-padded tourniquet was placed on superior right thigh; however, it was not used throughout the case. Right lower extrem ity was then prepped and draped in usual sterile fashion for arthroscopy. After this, a standard inf erolateral arthroscopy portal was then placed atraumatically with 1 pass. The knee was then sequenti ally examined including suprapatellar pouch, medial and lateral gutters and medial and lateral compar tments as well as the notch, patellofemoral joint. Pertinent findings included a tear of the posteri or aspect of the medial meniscus which extended up to the near mid meniscus. There were multiple fla ps and some radial component. The lateral meniscus had significant degeneration. Also seen is grade 3-4 chondromalacia of the medial and lateral compartments as well as grade 2 chondromalacia of the p atellofemoral joint. A standard inferior medial arthroscopy portal was then established using a need le for localization. This allowed for placement of a shaver and hand instruments to debride back the medial meniscus to a firm hook stable well contoured base. Any unstable chondral flaps are addresse d with light shaving. Attention was then turned to the lateral compartment where a combination of vasquez nd instruments and a shaver were then used to debride this back to a firm well contoured hook stable base. The knee was again examined in all the above areas with no further pathology seen, which were amenable to arthroscopic intervention. The inferior arthroscopy portals were then stapled shut and 3 0 cc of Marcaine was then placed within the knee. She was placed in a well-padded sterile dressing, awakened, and taken to recovery room in good condition. There were no complications. /MODShelley Voice ID: [id number] Report ID: [id number]
== END 2024-05-06 11:55 | disposition home or self-care (01) ==
LOC: OR 07:52
PROVIDERS: ATTEND Orthopaedic Surgery
PROC: 0SBC4ZZ Excision of Right Knee Joint, Percutaneous Endoscopic Approach (ICD-10-PCS; 2024-05-06)
PROC: 0SBC4ZZ Excision of Right Knee Joint, Percutaneous Endoscopic Approach (ICD-10-PCS; principal; 2024-05-06 09:30)
DX: S83.281D Other tear of lateral meniscus, current injury, right knee, subsequent encounter (principal); S83.241D Other tear of medial meniscus, current injury, right knee, subsequent encounter; M17.11 Unilateral primary osteoarthritis, right knee; I10 Essential (primary) hypertension; E78.00 Pure hypercholesterolemia, unspecified; J44.9 Chronic obstructive pulmonary disease, unspecified; F32.A Depression, unspecified
CPT/HCPCS: 93005; 85025; 80048; 36415; 29880; J2704; J2001; J2250; J3010 ×3; J1100; J2405; J7120

== ENCOUNTER 2024-09-11 13:52 | Emergency (ER) | payer OTHER ==
[2024-09-11] MEDS ORDERED: ALBUTEROL 2.5 MG/3 ML NEB SOL ONE (14:13)
[2024-09-11] MEDS ORDERED: IPRATROPIUM BROM 0.5MG/2.5ML ONE (14:14)
[2024-09-11 14:55] LABS: Absolute Basophils 0.1 K/uL (0-0.5); Absolute Eosinophils 0.1 K/uL (0-0.5); Absolute Monocytes 0.5 K/uL (0.1-1.3); Absolute Neutrophil 5.2 K/uL (1.8-8.0); Basophils % 0.7 % (0-1.3); Hematocrit 43.1 % (36.0-45.0); Hemoglobin 14.9 g/dL (12.0-15.0); Lymphocytes % 25.7 % (15.3-44.8); MCH 33.3 pg (27.0-35.0); MCHC 34.5 g/dL (32.0-36.0); MCV 96.4 fL (80-100); MPV 8.3 fL (7.6-11.3); Monocytes % 6.3 % (3.3-12.3); Neutrophils % 66.3 % (41.7-73.7); Nucleated Red Blood Cells % 0.1 % (0-0); Platelets 268 thou/uL (152-406); RBC Red Blood Cell Count 4.48 M/uL (3.86-4.86); Red Cell Distribution Width 13.5 % (12.1-15.2)
[2024-09-11 15:15] LABS: ALT/SGPT 20 U/L (13-56); Albumin 3.3 g/dL (3.4-5.0); Albumin/Globulin Ratio 1.1 (1.1-1.8); Alkaline Phosphatase 49 U/L (45-117); Anion Gap 8.9 mEq/L (5.0-15.0); BUN Blood Urea Nitrogen 25 mg/dL (7-18); Bicarbonate 27 mEq/L (21-32); Bilirubin Direct 0.2 mg/dL (0-0.2); Bilirubin Indirect, Calculated 0.7 mg/dL (0.2-0.8); Bilirubin Total 0.9 mg/dL (0.2-1.0); Globulin 2.9 g/dL (2.3-3.5); Glomerular Filtration Rate 70 ml/min (=/>90); Glucose Level 109 mg/dL (74-106); NT PRO-BNP 104 pg/mL (<125); Potassium 3.9 mEq/L (3.5-5.1); Protein, Total 6.2 g/dL (6.4-8.2); Sodium Level 137 mEq/L (136-145)
[2024-09-11] MEDS ORDERED: ONDANSETRON 4 MG/2 ML VIAL ONE (15:17)
[2024-09-11 15:27] LABS: AST/SGOT < 10 U/L (15-37)
--- NOTE | 2024-09-11 15:48 | RAD REPORT ---
EXAMINATION: ONE VIEW CHEST XR CLINICAL INDICATION: Female, 74 years old.,DYSPNEA TECHNIQUE: Frontal chest projection is submitted. Examination is limited by patient positioning and t echnique. COMPARISON: 02/09/2021 FINDINGS: The lungs are well inflated and clear. No pneumothorax or sizable effusion. The heart is normal in s ize. Mediastinal contours are unremarkable. IMPRESSION: No acute intrathoracic abnormalities.
--- NOTE | 2024-09-11 16:12 | EDPHYS ---
Physician Documentation [facility] Name: Baylee Ohara Age: 74 yrs Sex: Female : 1950 Arrival Date: 09/11/2024 Time: 13:52 Bed 2 Private MD: ED Physician Esequiel Urbina HPI: 09/11 15:12 This 74 yrs old Female presents to ER via Ambulatory with complaints of Shortness Of rt Breath. 15:12 Patient presents to the ED with dyspnea, cough for the past [address] rt Cruz, has been on steroids, bronchodilators, antibiotics. States that nothing is helping, her symptoms are worsening. Continues to smoke 1.5 packs/day. Denies other acute complaints at this time, symptoms are moderate in severity, no other aggravating or alleviating factors.. Historical: - Allergies: 14:52 Demerol; ph 14:52 NSAIDS; ph - PMHx: 14:52 Chronic obstructive lung disease; RA; ph - PSHx: 14:03 cataract repair; ll1 - Immunization history:: Adult Immunizations up to date. - Infectious Disease History:: Denies. - Social history:: Smoking status: Patient reports the use of cigarette tobacco products, smokes 1.5 packs per day. - Family history:: not pertinent. ROS: 15:12 Constitutional: Negative for fever, chills, and weight loss, Cardiovascular: Negative rt for chest pain, palpitations, and edema, Abdomen/GI: Negative for abdominal pain, nausea, vomiting, diarrhea, and constipation, MS/Extremity: Negative for injury and deformity, Skin: Negative for injury, rash, and discoloration, Neuro: Negative for headache, weakness, numbness, tingling, and seizure, 15:12 Respiratory: Positive for cough, shortness of breath, Exam: 15:12 Constitutional: This is a well developed, well nourished patient who is awake, alert, rt and in no acute distress. Head/Face: Normocephalic, atraumatic. Chest/axilla: Normal chest wall appearance and motion. Nontender with no deformity. No lesions are appreciated. Cardiovascular: Regular rate and rhythm with a normal S1 and S2. No gallops, murmurs, or rubs. Normal PMI, no JVD. No pulse deficits. Abdomen/GI: Soft, non-tender, with normal bowel sounds. No distension or tympany. No guarding or rebound. No evidence of tenderness throughout. Skin: Warm, dry with normal turgor. Normal color with no rashes, no lesions, and no evidence of cellulitis. MS/ Extremity: Pulses equal, no cyanosis. Neurovascular intact. Full, normal range of motion. Neuro: Awake and alert, GCS 15, oriented to person, place, time, and situation. Cranial nerves II-XII grossly intact. Motor strength 5/5 in all extremities. Sensory grossly intact. Cerebellar exam normal. Normal gait. 15:12 ECG was reviewed by the Attending Physician. 15:12 Respiratory: Faint wheezes heard, no respiratory distress., Vital Signs: 14:01 BP 140 / 80; Pulse 89; Resp 17; Temp 97.2; Pulse Ox 98% ; Weight 83.91 kg; Height 5 ft. ll1 2 in. ; Pain 0/10; 14:53 BP 129 / 72; Pulse 73; Resp 18; Pulse Ox 99% on Nebulizer Mask; ph 16:00 BP 132 / 70; Pulse 78; Resp 18; Temp 97.4; Pulse Ox 97% on R/A; ph 14:01 Body Mass Index 33.84 (83.91 kg, 157.48 cm) ll1 14:01 Pain Scale: Adult ll1 MDM: 14:02 Medical Screening Exam initiated rt 16:13 Differential diagnosis: COPD, pneumonia, pneumothorax. Data reviewed: vital signs, rt nurses notes, lab test result(s), EKG, radiologic studies. Management of patient was discussed with the following: Beauty Counselor: Discussed with Dr. Cruz, recommends prednisone 20 mg twice daily for 1 week, will follow patient as an outpatient.. Independent interpretation of the following test(s) in the Emergency Department X-Ray: My interpretation is No infiltrate seen on interpretation of x-ray images. Test considered but Not performed: CT: Low suspicion for PE, PE RC negative, does not require CT angiogram to rule out pulmonary embolus. Care significantly affected by the following chronic conditions: Chronic Obstructive Pulmonary Disease. Counseling: I had a detailed discussion with the patient and/or guardian regarding the historical points, exam findings, and any diagnostic results supporting the discharge/admit diagnosis, lab results, radiology results, the need for outpatient follow up. Response to treatment: the patient's symptoms have mildly improved after treatment. 09/11 14:08 Order name: Basic Metabolic Panel; Complete Time: 15:41 rt 09/11 14:08 Order name: CBC with Diff; Complete Time: 15:41 rt 09/11 14:08 Order name: LFT's; Complete Time: 15:41 rt 09/11 14:08 Order name: NT PRO-BNP; Complete Time: 15:41 rt 09/11 14:08 Order name: Troponin HS; Complete Time: 15:41 rt 09/11 14:08 Order name: XRAY Chest (1 view); Complete Time: 15:53 rt 09/11 14:08 Order name: Cardiac monitoring; Complete Time: 14:50 rt 09/11 14:08 Order name: EKG - Nurse/Tech; Complete Time: 14:50 rt 09/11 14:08 Order name: IV Saline Lock; Complete Time: 14:50 rt 09/11 14:08 Order name: Labs collected and sent; Complete Time: 14:50 rt 09/11 14:08 Order name: O2 Per Protocol; Complete Time: 14:13 rt 09/11 14:08 Order name: O2 Sat Monitoring; Complete Time: 14:13 rt EC:12 Rate is 73 beats/min. Rhythm is regular, Normal Sinus Rhythm with No ectopy. QRS Center [place] rt is Normal. [place] interval is normal. QRS interval is normal. QT interval is normal. No Q waves. T waves are Normal. No ST changes noted. Interpreted by me. Administered Medications: 15:02 Drug: DuoNeb Nebulize (3:1) (2.5 mg - 0.5 mg) 3 ml Nebulizer once Route: Nebulizer; ph 15:30 Follow up: Response: No adverse reaction ph Disposition Summary: 09/11/24 16:11 Discharge Ordered Notes: Location: Home rt Problem: an ongoing problem rt Symptoms: are unchanged rt Condition: Stable rt Diagnosis - COPD/ Chronic obstructive pulmonary disease, unspecified rt Followup: rt - With: Private Physician - When: 2 - 3 days - Reason: Discharge Instructions: - Discharge Summary Sheet rt - Chronic Obstructive Pulmonary Disease rt Forms: - Medication Reconciliation Form rt - Antibiotic Education rt - Prescription Opioid Use rt - Patient Portal Instructions rt - Leadership Thank You Letter rt Prescriptions: - Prednisone 20 mg Oral tablet - take 1 tablet ORAL route every 12 hours; 14 tablet; Refills: 0, Product rt Selection Permitted Signatures: Dispatcher [employer] Janette Saini RN RN ph Lewis, Lynsay, RN RN ll1 Esequiel Urbina MD MD rt
--- NOTE | 2024-09-11 16:12 | ER ---
Nurse's Notes [facility] Name: Baylee Ohara Age: 74 yrs Sex: Female : 1950 Arrival Date: 09/11/2024 Time: 13:52 Bed 2 Private MD: Diagnosis: COPD/ Chronic obstructive pulmonary disease, unspecified Presentation: 09/11 14:01 Chief complaint: Patient states: Cough, SOB, dizzy for 3 weeks. Some nausea with light ll1 vomiting. No known fever. Coronavirus screen: Client denies travel out of the [place] in the last 14 days. cough unrelated to allergies, difficulty breathing, fatigue, shortness of breath, Client presents with at least one sign or symptom that may indicate coronavirus-19. Standard/surgical mask placed on the client. Ebola Screen: Patient denies travel to an Ebola-affected area in the 21 days before illness onset. Initial Sepsis Screen: Does the patient meet any 2 criteria? No. Patient's initial sepsis screen is negative. Does the patient have a suspected source of infection? No. Patient's initial sepsis screen is negative. Risk Assessment: Do you want to hurt yourself or someone else? Patient reports no desire to harm self or others. Onset of symptoms was August 22, 2024. 14:01 Method Of Arrival: Ambulatory ll1 14:01 Acuity: DUSTIN 3 ll1 Triage Assessment: 14:53 Respiratory: the patient has mild shortness of breath. ph Historical: - Allergies: 14:52 Demerol; ph 14:52 NSAIDS; ph - PMHx: 14:52 Chronic obstructive lung disease; RA; ph - PSHx: 14:03 cataract repair; ll1 - Immunization history:: Adult Immunizations up to date. - Infectious Disease History:: Denies. - Social history:: Smoking status: Patient reports the use of cigarette tobacco products, smokes 1.5 packs per day. - Family history:: not pertinent. Screenin:52 [facility] ED Fall Risk Assessment (Adult) History of falling in the last 3 months, ph including since admission No falls in past 3 months (0 pts) Confusion or Disorientation No (0 pts) Intoxicated or Sedated Yes (3 pts) Impaired Gait No (0 pts) Mobility Assist Device Used No (0 pt) Altered Elimination No (0 pt) Score/Fall Risk Level 0 - 2 = Low Risk Oriented to surroundings, Maintained a safe environment, Hourly rounding (assess needs \T\ fall precautionary measures) done. Abuse screen: Denies threats or abuse. Denies injuries from another. Nutritional screening: No deficits noted. Tuberculosis screening: No symptoms or risk factors identified. Assessment: 14:51 General: Appears in no apparent distress. comfortable, well groomed, Behavior is calm, ph cooperative. Pain: Denies pain. Neuro: Level of Consciousness is awake, alert, obeys commands, Oriented to person, place, time, situation. Cardiovascular: Reports shortness of breath, Capillary refill < 3 seconds in bilateral fingers Patient's skin is warm and dry. Rhythm is sinus rhythm. Respiratory: Reports shortness of breath cough that is Airway is patent Respiratory effort is even, unlabored, Respiratory pattern is regular, symmetrical. Derm: Skin is pink, warm \T\ dry. Vital Signs: 14:01 BP 140 / 80; Pulse 89; Resp 17; Temp 97.2; Pulse Ox 98% ; Weight 83.91 kg; Height 5 ft. ll1 2 in. ; Pain 0/10; 14:53 BP 129 / 72; Pulse 73; Resp 18; Pulse Ox 99% on Nebulizer Mask; ph 16:00 BP 132 / 70; Pulse 78; Resp 18; Temp 97.4; Pulse Ox 97% on R/A; ph 14:01 Body Mass Index 33.84 (83.91 kg, 157.48 cm) ll1 14:01 Pain Scale: Adult ll1 ED Course: 13:54 Patient arrived in ED. mr 13:54 Esequiel Urbina MD is Attending Physician. rt 14:03 Triage completed. ll1 14:04 Arm band placed on Patient placed in an exam room, on a stretcher. ll1 14:08 Janette Griffin, ROSANGELA is Primary Nurse. ph 14:22 XRAY Chest (1 view) In Process Unspecified. EDMS 14:40 Missed attempt(s): 22 gauge in right forearm. Bleeding controlled, band aid applied, ph catheter tip intact. Missed attempt(s): 22 gauge in left wrist. Bleeding controlled, band aid applied, catheter tip intact. 14:51 Troponin HS Sent. ph 14:51 NT PRO-BNP Sent. ph 14:51 LFT's Sent. ph 14:51 CBC with Diff Sent. ph 14:51 Basic Metabolic Panel Sent. ph 14:52 Initial lab(s) drawn, by me, sent to lab. EKG done. Inserted saline lock: 22 gauge in ph left hand, using aseptic technique. Blood collected. Flushed with 10 mL NS. 14:53 Patient has correct armband on for positive identification. Bed in low position. Call ph light in reach. Side rails up X 1. Pulse ox on. NIBP on. Door closed. Noise minimized. 15:02 Basic Metabolic Panel Sent. ph 15:02 LFT's Sent. ph 15:02 NT PRO-BNP Sent. ph 15:02 Troponin HS Sent. ph 16:26 No provider procedures requiring assistance completed. IV discontinued, intact, kc6 bleeding controlled, No redness/swelling at site. Pressure dressing applied. Administered Medications: 15:02 Drug: DuoNeb Nebulize (3:1) (2.5 mg - 0.5 mg) 3 ml Nebulizer once Route: Nebulizer; ph 15:30 Follow up: Response: No adverse reaction ph Medication: 14:52 VIS not applicable for this client. ph Outcome: 16:11 Discharge ordered by . rt 16:26 Discharged to home via wheelchair, with family, kc6 16:26 Condition: good 16:26 Discharge instructions given to patient, Instructed on discharge instructions, follow up and referral plans. medication usage, Demonstrated understanding of instructions, follow-up care, medications, Prescriptions given X 1, 16:26 Patient left the ED. [email or web address] Signatures: Dispatcher [employer] EDKS Celia Espino, Reg Reg mr Janette Griffin, RN Ava Olivares ph, RN RN ll1 Ya Hickman RN RN [email or web address] Esequiel Urbina MD MD rt
[2024-09-11 16:33] VITALS: TEMP 97.2
[2024-09-11 16:34] VITALS: BP 129/72; O2SAT 99
== END 2024-09-11 16:26 | disposition home or self-care (01) ==
LOC: ER 13:52
DX: J44.9 Chronic obstructive pulmonary disease, unspecified (principal); F17.210 Nicotine dependence, cigarettes, uncomplicated
CPT/HCPCS: 93005; 85025; 80048; 36415; 80076; 84484; 83880; 71045; 99284; J7613; J7644; J2405